=== PATIENT | female | born 1955 | race Caucasian/White ===

== ENCOUNTER 2017-07-22 20:46 | Emergency (ER) | payer OTHER, SELFPAY ==
[~2017-07-22] VITALS: Ht 167.6 cm; Wt 79.4 kg
--- NOTE | 2017-07-22 20:46 | NUR ---
ARRIVAL PATIENT ARRIVED TO ER VIA POV, PATIENT TO ROOM 3 VIA W/C BY THIS NURSE, CONNECTED TO ALL MONITORS, MD AT BEDSIDE, RT CALLED FOR EGK, RADIOLOGY CALLED FOR CT, LAB NOTIFIED OF NEED FOR CARDIAC BLOOD DRAW. PATIENT UNABLE TO RESPOND APPRORIATELY TO QUESTIONS.
--- NOTE | 2017-07-22 21:00 | NUR ---
TELESTROKE [facility] NOTIFIED, TELESTROKE IN PATIENT ROOM.
--- NOTE | 2017-07-22 21:04 | NUR ---
IV #1 AND IV #2 2055 #1 20G LEFT AC, 2100 #2 20G LEFT FOREARM
--- NOTE | 2017-07-22 21:05 | PCM.EKG ---
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
--- NOTE | 2017-07-22 21:06 | NUR ---
CT PATIENT TO CT
--- NOTE | 2017-07-22 21:07 | NUR ---
DR. GARCIA TELESTROKE NUEROLOGIST TALKING TO FAMILY ABOUT PATIENT HISTORY
--- NOTE | 2017-07-22 21:10 | NUR ---
CT PATIENT BACK FROM CT
--- NOTE | 2017-07-22 21:10 | NUR ---
DR. GARCIA ASSESSING PATIENT, DOES NOT BELIEVE PATIENT IS A CANDIDATE FOR TPA THERAPY AT THIS TIME. REQUEST A CTA OF HEAD AND NECK.
--- NOTE | 2017-07-22 21:11 | NUR ---
DR. GARCIA ON PHONE WITH DR. LEZAMA ABOUT POSSIBLE TREATMENT OPTIONS.
[2017-07-22 21:12] LABS: BASOPHIL % 0.1 % (0.0-0.2); EOSINOPHIL # 0.3 10^3/uL (0.0-0.2); HEMOGLOBIN 14.1 g/dL (12.0-15.0); LYMPHOCYTES # 3.8 10^3/uL (1.0-4.8); LYMPHOCYTES % 25.3 % (24.0-44.0); MEAN CELL HGB 27.1 pg (26-34); MEAN CORP VOLUME 84.5 fL (78-100); MEAN PLATELET VOLUME 9.2 fL (7.8-11.0); MONOCYTES # 1.2 10^3/uL (0.3-0.8); NEUTROPHIL # 9.6 10^3/uL (1.8-7.7); NEUTROPHILS % 64.3 % (41.0-85.0); WHITE BLOOD CELL 14.8 10^3/uL (4.5-11.0)
--- NOTE | 2017-07-22 21:20 | ER.PDOC ---
General Chief Complaint: Stroke Symptoms Stated Complaint: POSSIBLE STROKE Time seen by MD: 21:17 Source: family, other (62 yo female smoker presents with sudden onset at 2134 of R facial weakness, aphasia, R arm weakness. Was supposed to have R carotid endarterectomy on this next Wednesday at [facility] for a 90+ % blockage there. Had previous CVA on May 28, did not come to hospital until 2 days later. Was felt to be ischemic CVA and then bled into area of CVA. on ASA 81, atrovastatin , metformin, glimepiride, lisinopril metoprolol and cardiazem. ) Exam Limitations: clinical condition History of Present Illness Prior symptoms/Treatment: Similar symptoms previous (CT scan: appears to have old encephalomalacia in L parietal and L occipital areas, no bleed currently) Allergies: Coded Allergies: No Known Allergies (Unverified , 07/22/17) Past Medical History Medical History: CVA/TIA/stroke, cardiac problems, COPD Surgical History: stent LMP (females 10-50): postmenopause Family History Significant Family History: diabetes, hypertension, lung disease Social History Smoking: cigarettes, greater than 1 pack/day Alcohol Use: none Drug Use: none Review of Systems Constitutional: other (all obtained through niece and daughter, pt unable to give) All Other Systems: Reviewed and Negative Physical Exam General Appearance: alert, other (very elderly thin disheveled female , appears 10+ years OLDER than stated age. Is aphasic, has R facial droop and 3 /5 RUE weakness) Peripheral Exam: hemiparesis Neck: supple, non-tender Respiratory: rales CVS: reg rate & rhythm Abdomen: non-tender Skin: color nml, no rash Extremities: non-tender Results/Orders Results/Orders Laboratory Tests Test 07/22/17 21:05 White Blood Count 14.8 10^3/uL (4.5-11.0) Red Blood Count 5.21 10^6/uL (4.00-5.20) Hemoglobin 14.1 g/dL (12.0-15.0) Hematocrit 44.0 % (36.0-46.0) Mean Corpuscular Volume 84.5 fL (78-100) Mean Corpuscular Hemoglobin 27.1 pg (26-34) Mean Corpuscular Hemoglobin Concent 32.0 g/dL (33-37) Red Cell Distribution Width 14.0 % (11.5-14.5) Platelet Count 378 10^3/uL (150-400) Mean Platelet Volume 9.2 fL (7.8-11.0) Neutrophils (%) (Auto) 64.3 % (41.0-85.0) Lymphocytes (%) (Auto) 25.3 % (24.0-44.0) Monocytes (%) (Auto) 8.0 % (5.0-12.0) Neutrophils # (Auto) 9.6 10^3/uL (1.8-7.7) Lymphocytes # (Auto) 3.8 10^3/uL (1.0-4.8) Monocytes # (Auto) 1.2 10^3/uL (0.3-0.8) Absolute Immature Granulocyte (auto 0.04 10^3 u/L (0-2) Eosinophils % 2.0 % (0.0-5.0) Basophils % 0.1 % (0.0-0.2) Basophils # 0.0 10^3/uL (0.0-0.1) Eosinophil Count 0.3 10^3/uL (0.0-0.2) Prothrombin Time 11.2 SEC (9.8-11.9) Prothrombin Time INR (Non-Therap) 1.1 Activated Partial Thromboplast Time 24.6 SEC (24.67-30.72) Sodium Level 137 mmol/L (132-145) Potassium Level 4.0 mmol/L (3.6-5.2) Chloride Level 102.0 mmol/L (96-109) Carbon Dioxide Level 24.2 mmol/L (20.0-32) Anion Gap 14.8 Blood Urea Nitrogen 18 mg/dL (7-18) Creatinine 0.79 mg/dL (0.59-1.40) Estimated GFR () 89.2 (>/=60) BUN/Creatinine Ratio 22.0 Glucose Level 111 mg/dL (70-110) Calcium Level 11.6 mg/dL (8.4-10.5) Total Bilirubin 0.4 mg/dL (0.2-1.0) Aspartate Amino Transf (AST/SGOT) 14 U/L (0-35) Alanine Aminotransferase (ALT/SGPT) 27 U/L (12-78) Alkaline Phosphatase 117 U/L (50-136) Total Creatine Kinase 41 U/L (26-192) Creatine Kinase MB 0.5 ng/mL (0.5-3.6) Troponin I < 0.02 ng/mL (0.00-0.05) Total Protein 8.3 g/dL (6.4-8.2) Albumin 4.0 g/dL (3.4-5.0) Globulin 4.3 Percent Immature Gran (Cell Imm) 0.30 % (0.00-0.50) Administered Medications Medications (Trade) Dose Ordered Sig/Natty Route PRN Reason Start Time Stop Time Status Last Admin Dose Admin Sodium Chloride 500 ml @ 500 mls/hr Q1H ONCE IV 07/22/17 23:00 07/22/17 23:59 DC 07/23/17 00:01 Progress Progress spoke to dr at stroke center, since bleed into previous CVA in May 2017, NO TPA. wants CTA of head and neck, then call him back. Symptoms not worse, but no better at 2151 hours. Still smoking (EVEN after previous CVA). I mentioned this once, family vehemently denies this was a cause or risk factor, so I dropped the subject. Await CTA, creatinine normal. [facility], no neurologist. [facility], no ICU beds. [facility], on adult diversin. trying [facility]. CTA: formal report (I saw marked L carotid stenosis). Severe, almost complete narrowing of proximal L internal carotid aratery just after the bifurcation. Flow is seen distal to area of narrowing. Scattered other atherosclerotic disease noted. 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 Pt more alert, speech gradually returning. Had pulled out Yip jeannine Allan RN , no reinserted, no active bleeding. Consult/PCP: well as in inferior leads, 1-2 mm. Reason/Comments: EKG: NSR at 88, biatrial enlargement, trace ST depression on V5 and V6, as Departure Time of Disposition: 00:57 Disposition: 70 DISC/XFER TO ANOTH TYP [facility] Impression: Primary Impression: CVA (cerebrovascular accident) Condition: Stable Referrals: PCP,UNKNOWN (PCP) PRIMARY CARE PROVIDER Duration or Time Spent with Pa: 35 LLOYD LEZAMA MD Jul 22, 2017 21:20
--- NOTE | 2017-07-22 21:27 | DIREP ---
PROCEDURE:CT HEAD OR BRAIN W/O CONTRAST COMPARISON:None. INDICATIONS:POSS CVA TECHNIQUE:CT images were created without intravenous contrast. FINDINGS: VENTRICLES:The ventricles are normal in size and configuration. CEREBRUM:Remote left frontoparietal infarct. CEREBELLUM:Negative. BRAINSTEM:Negative. BASAL CISTERNS:Negative. HEMORRHAGE:No MASS LESION:No ACUTE INFARCT:No SKULL:Normal. SINUSES:Normal, except for near complete opacification of left maxillary sinus. OTHER:Vascular calcification. CONCLUSION:Chronic changes, including remote left frontoparietal infarct. Otherwise, negative head CT. Dictated by: Milad Au M.D. on 07/22/2017 at 09:25 PM
[2017-07-22 21:39] LABS: ALANINE AMINOTRANSFERASE 27 U/L (12-78); ALKALINE PHOSPHATASE 117 U/L (50-136); ASPARTATE AMINO TRANSFERASE 14 U/L (0-35); CALCIUM 11.6 mg/dL (8.4-10.5); CARBON DIOXIDE 24.2 mmol/L (20.0-32); GLUCOSE 111 mg/dL (70-110)
--- NOTE | 2017-07-22 21:46 | NUR ---
Note ashly in EDM - 07/22/17 at 2154 by [email or web address] ARRIVAL PATIENT ARRIVED AT ED VIA POV, THIS NURSE BROGHT PATIENT BACK TO ROOM 3 VIA W/C, PATIENT SHOWING SIGNS OF ACUTE STROKE, UNABLE TO EFFECTIVELY COMMUNICATE AND ANSWER QUESTIONS. PATIENT CONNECTED TO ALL MONITORS, RT CALLED FOR EKG, RADIOLOGY CALLED FOR CT, LAB NOTIFIED OF CARDIAC BLOOD DRAW.
--- NOTE | 2017-07-22 21:50 | NUR ---
Lenny limon in [facility] - 07/22/17 at 2243 by [email or web address] CT[address] PATIENT [address] FOR CTA OF HEAD AND NECK
--- NOTE | 2017-07-22 21:57 | NUR ---
NIH STROKE SCALE SCORE OF 20.
--- NOTE | 2017-07-22 22:15 | NUR ---
CTA PATIENT TO CTA FOR HEAD AND NECK PER DR. GARCIA
--- NOTE | 2017-07-22 22:37 | NUR ---
CTA PATIENT BACK
--- NOTE | 2017-07-22 22:44 | NUR ---
NIH SCALE SCORE 20
--- NOTE | 2017-07-22 22:45 | NUR ---
[facility] DR GARCIA STATES TO HAVE PATIENT TRANSFERRED TO [facility], EDP ON PHONE WITH [facility], STATES NO NEUROLOGY
--- NOTE | 2017-07-22 22:46 | NUR ---
[facility] DR. LEZAMA ON THE PHONE WITH DR. GARCIA FROM [facility].
[2017-07-22] MEDS ORDERED: NS 500ML 500 ML IV ONE ×2 (22:47→23:00)
--- NOTE | 2017-07-22 22:48 | NUR ---
[facility] STATES NO ICU BEDS AVAILABLE
--- NOTE | 2017-07-22 22:50 | DIREP ---
PROCEDURE:CTA HEAD NECK CT-CTA HEAD W/WO CONTRAST COMPARISON:None. INDICATIONS:infarct TECHNIQUE:Following the rapid infusion of intravenous contrast, 1.3 mm axial CTA images were obtained through the head and neck. Multiplanar and 3-D reconstructions were performed from source images. FINDINGS: NECK CTA: AORTIC ARCH:Out of field of view. RIGHT CAROTID:There is occasional atherosclerotic plaque and narrowing however overall patency is maintained. LEFT CAROTID:There is occasional atherosclerotic plaque and narrowing of the common carotid however overall patency is maintained., see below. VERTEBRAL ARTERIES: Regions of the left vertebral artery are diminutive when compared to the right however maintain patency is seen. NECK TISSUES:Unremarkable. LUNGS:Chronic changes are seen in the lung apices. MEDIASTINUM:Unremarkable. BONE:Unremarkable. HEAD CTA: INTERNAL CAROTIDS:There is almost near complete occlusion of the left internal carotid just after the bifurcation with the region of narrowing starting at the bifurcation and extending about 2.4 cm along the proximal internal carotid. The areas of greatest narrowing in the proximal internal carotid artery seen on image 1 0 3 series 8. ANTERIOR CEREBRALS:Unremarkable. MIDDLE CEREBRALS:Unremarkable. VERTEBRALS/BASILAR:Unremarkable. POSTERIOR CEREBRALS:Unremarkable. HEAD SOFT TISSUES: Unremarkable. SINUSES:Maxillary sinus disease is seen on the left with near complete opacification. Please note that this examination was not tailored for evaluation of the brain parenchyma. CONCLUSION: 1. Severe almost near complete narrowing of the proximal left internal carotid artery just after the bifurcation. Flow is seen distal to the area of narrowing. 2. Scattered atherosclerotic disease as above. This report was called by telephone at 10:49 pm on July 22, 2017 to Arabella Stevens . Dictated by: Wale Singh MD on 07/22/2017 at 10:37 PM
--- NOTE | 2017-07-22 22:50 | DIREP ---
PROCEDURE:CHEST 1 VIEW COMPARISON:[facility], , CHEST 1 VIEW, 05/02/2012, 04:12 PM. INDICATIONS:POSS CVA FINDINGS: LUNGS/PLEURA:No significant pulmonary parenchymal abnormalities. No effusions. VASCULATURE:Normal. Unremarkable pulmonary vasculature. CARDIAC:Normal. No cardiac silhouette abnormality or cardiomegaly. MEDIASTINUM:Normal. No visible mass or adenopathy. BONES:Mild degenerative disc disease and spondylosis without visible acute abnormalities. OTHER:Negative. CONCLUSION:No acute cardiopulmonary disease. No change. Dictated by: Milad Au M.D. on 07/22/2017 at 10:48 PM
--- NOTE | 2017-07-22 22:50 | NUR ---
[facility]
--- NOTE | 2017-07-22 23:00 | NUR ---
[facility] EDP ON PHONE WITH [facility], STATES THEY HAVE ICU BEDS, WILL CALL BACK
--- NOTE | 2017-07-22 23:35 | NUR ---
[facility]LOE NURSE AND DR. LEZAMA.
--- NOTE | 2017-07-22 23:42 | NUR ---
TRANSFER FAXED FACE SHEET.
--- NOTE | 2017-07-22 23:45 | NUR ---
NIH SCALE SCORE 18
--- NOTE | 2017-07-22 23:47 | NUR ---
[facility] ACCEPTING ER TO ER. DR. RIVERA
--- NOTE | 2017-07-23 00:07 | NUR ---
UPDATE REPORT GIVEN TO GONSALO HARO AT [facility].
--- NOTE | 2017-07-23 00:21 | NUR ---
[facility] CALLED FOR APPROX ETA,PEPPER WITH [facility] STATES APPROX 25-30 MIN ETA
--- NOTE | 2017-07-23 00:45 | NUR ---
NIH STROKE SCALE SCORE 18
[2017-07-23 01:08] VITALS: BP 127/78
--- NOTE | 2017-07-23 01:33 | CNH ---
DATE OF CONSULTATION: 07/22/2017 REFERRING SERVICE: Emergency Room. CHIEF COMPLAINT: A 62-year-old woman who presents to the ER with symptoms concerning for an acute stroke. HISTORY OF PRESENT ILLNESS: The patient was reportedly with her family earlier in the day and then was noted at 20:35 to have new-onset right-sided weakness and speech difficulty. The patient did suffer a stroke in May with somewhat similar symptoms. The family states that the patient had hemorrhage into the stroke at that time. The patient was identified to have a left internal carotid artery stenosis and had plans to have Surgery correct this not long from now. She had been taking aspirin daily, but no other blood thinners. CT scan of the head showed no evidence of a hemorrhage. A CT angiogram of the head and neck shows a near occlusion of the left internal carotid artery, but no intracranial occlusion was found. Examination showed the patient to be awake, following commands, but dense expressive aphasia, right facial droop, no gaze deviation or evidence of visual field cut, mild right arm clumsiness/drift, right leg normal strength, left side normal strength. NIH stroke scale equals 9. DIAGNOSES: 1. Acute ischemic stroke. 2. Recent stroke, within 3 months, complicated by hemorrhagic transformation of the stroke. DISCUSSION: IV TPA was considered due to the fact that this is felt to be a new stroke. However, given the fact the patient had a fairly recent stroke and especially the fact that she had a hemorrhage into that stroke, it was felt that the risk of IV TPA had the potential benefits for the patient, as best I could determine with the available data. I did recommend hydration, permissive hypertension to augment collateral flow, and continued aspirin. Júnior Wagoner MD DR: SIRISHA/danie JOB# [id number]
== END 2017-07-23 00:55 | disposition other institution (70) ==
LOC: ER 20:46
DX: I63.9 Cerebral infarction, unspecified (principal); F17.210 Nicotine dependence, cigarettes, uncomplicated; J44.9 Chronic obstructive pulmonary disease, unspecified; R29.810 Facial weakness; G81.90 Hemiplegia, unspecified affecting unspecified side; R47.01 Aphasia; Z83.3 Family history of diabetes mellitus; Z86.73 Personal history of transient ischemic attack (TIA), and cerebral infarction without residual deficits
CPT/HCPCS: 70450; 70496; 70498; 71010; 80053; 82550; 82553; 84484; 85025; 85610; 85730; 93005; 96360; 99291; J7040; Q9967; 99285; A4338

== ENCOUNTER 2018-02-22 11:57 | Inpatient (IN) | payer OTHER, SELFPAY ==
[2018-02-22] VITALS (35 sets, daily range): BP systolic 119–176; BP diastolic 61–114
[~2018-02-22] VITALS: Ht 165.1 cm; Wt 77.2 kg
[2018-02-22] MEDS ORDERED: CARDIZEM PO STA (11:59)
[2018-02-22] MEDS ORDERED: CARDIZEM IV STA ×3 (11:59→12:17)
--- NOTE | 2018-02-22 12:01 | NUR ---
ARRIVAL VIKTORIA ARRIVED TO ED3 VIA W/C WITH FAMILY, SENT FROM DOCTOR BLACKS OFFICE FOR LOW BP AND WEAKNESS, HEART RATE 165 ON INITIAL ASSESSMENT, DENIES CHEST PAIN BUT HAS HAD NAUSEA AND VOMITING.
[2018-02-22] MEDS ORDERED: CARDIZEM ONE ×4 (12:02→20:15)
[2018-02-22 12:11] LABS: BASOPHIL % 0.1 % (0.0-0.2); EOSINOPHIL % 0.1 % (0.0-5.0); HEMOGLOBIN 15.9 g/dL (12.0-15.0); LYMPHOCYTES # 2.1 10^3/uL (1.0-4.8); LYMPHOCYTES % 13.6 % (24.0-44.0); MEAN CELL HGB 27.6 pg (26-34); MEAN CELL HGB CONCENTRATION 34.2 g/dL (33-37); MEAN CORP VOLUME 80.6 fL (78-100); MEAN PLATELET VOLUME 9.8 fL (7.8-11.0); MONOCYTES # 1.2 10^3/uL (0.3-0.8); MONOCYTES % 7.4 % (5.0-12.0); NEUTROPHIL # 12.3 10^3/uL (1.8-7.7); NEUTROPHILS % 78.5 % (41.0-85.0); WHITE BLOOD CELL 15.6 10^3/uL (4.5-11.0)
--- NOTE | 2018-02-22 12:11 | ER.PDOC ---
General Chief Complaint: Palpitations Stated Complaint: RAPID HR Time seen by MD: 12:00 Source: patient Exam Limitations: no limitations History of Present Illness Timing/Duration: 24 hours Quality: fast, pounding heart beat Activities at Onset: none History of: A-FIB Modifying Factors: exercise, palpation Prior symptoms/Treatment: Similar symptoms previous Allergies: Coded Allergies: No Known Allergies (Unverified , 07/22/17) Home Meds Reported Medications Lactobacillus Combination No.4 (Probiotic) 1 Each Capsule, 1 EACH PO DAILY24, CAPSULE 02/22/18 Atorvastatin 20MG (LIPITOR 20MG) 20 Mg Tablet, 1 TAB PO DAILY, #90 TAB 3 Refills 02/22/18 Glimepiride (GLIMEPIRIDE) 4 Mg Tablet, 1 TAB PO DAILY, #30 TAB 5 Refills 02/22/18 Metoprolol Tartrate 25MG (LOPRESSER 25MG) 25 Mg Tablet, 1 TAB PO HS, #180 TAB 3 Refills 02/22/18 Metformin Hcl (METFORMIN HCL) 500 Mg Tablet, 1 TAB PO BID, #180 TAB 3 Refills 02/22/18 Apixaban (Eliquis) 5 Mg Tablet, 5 MG PO BID, TABLET 02/22/18 Diltiazem Hcl (CARDIZEM CD) 180 Mg Cap.er.24h, 1 CAP PO DAILY, #90 CAP 3 Refills 02/22/18 Past Medical History Medical History: cardiac problems Surgical History: hysterectomy, tubal, other LMP (females 10-50): postmenopause Social History Smoking: non-smoker, cigarettes Alcohol Use: none Drug Use: none Reviewed Nursing Reviewed: Vital Signs, Abn. Noted All Other Systems: Reviewed and Negative Physical Exam General Appearance: No Apparent Distress, WD/WN HEENT: PERRL/EOMI, Normal ENT Inspection, TMs Normal, Pharynx Normal Neck: Non-Tender, Full Range of Motion, Supple, Normal Inspection Respiratory: chest non-tender, lungs clear, normal breath sounds, no respiratory distress, no accessory muscle use Cardiovascular: Irregularly Irregular EKG/XRAY/CT/US EKG Comments: AFIB XRAY: chest Consult/PCP Time Consult/PCP Called: 13:00 Consult/PCP: DR BONNER Departure Time of Disposition: 13:33 Disposition: 09 ADMITTED INPATIENT Impression: Primary Impression: Atrial fibrillation Condition: Improved Referrals: SAVANA DAVID DO (PCP) PRIMARY CARE PROVIDER Duration or Time Spent with Pa: 2 HRS LEONARDO PAGAN MD Feb 22, 2018 12:11
[2018-02-22] MEDS ORDERED: NS 100ML 100 ML IV ONE ×2 (12:21→20:15)
--- NOTE | 2018-02-22 12:23 | PCM.EKG ---
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
--- NOTE | 2018-02-22 12:36 | DIREP ---
PROCEDURE:CHEST 1 VIEW COMPARISON:[facility], CR, XRAY CHEST SINGLE VW, 07/22/2017, 10:17 PM. INDICATIONS:a fib FINDINGS: LUNGS/PLEURA:No significant pulmonary parenchymal abnormalities. No effusions. VASCULATURE:Normal. Unremarkable pulmonary vasculature. CARDIAC:Normal. No cardiac silhouette abnormality or cardiomegaly. MEDIASTINUM:Normal. No visible mass or adenopathy. BONES:Spondylosis is noted throughout the mid and lower thoracic spine. Degenerative changes of the acromioclavicular joints are demonstrated. OTHER:Negative. CONCLUSION: 1. No active cardiopulmonary disease is demonstrated. Dictated by: Juan Antonio aMrrero M.D. on 02/22/2018 at 11:35 AM
[2018-02-22 12:37] LABS: ALANINE AMINOTRANSFERASE(ML) 23 U/L (12-78); ALKALINE PHOSPHATASE 147 U/L (50-136); ASPARTATE AMINO TRANSFERASE 13 U/L (0-35); CALCIUM 11.3 mg/dL (8.4-10.5); CARBON DIOXIDE 26.4 mmol/L (20.0-32)
[2018-02-22 12:39] LABS: GLUCOSE 425 mg/dL (70-110)
[2018-02-22] MEDS ORDERED: DILT180C2 PO (12:51)
[2018-02-22] MEDS ORDERED: LACT1CAP38 PO (12:51)
[2018-02-22] MEDS ORDERED: APIX5TAB PO (12:51)
[2018-02-22] MEDS ORDERED: METF500T5 PO (12:51)
[2018-02-22] MEDS ORDERED: GLIM4TAB2 PO (12:51)
[2018-02-22] MEDS ORDERED: ATOR20TA PO (12:51)
[2018-02-22] MEDS ORDERED: METO25TA4 PO (12:51)
[2018-02-22] MEDS ORDERED: HUMULIN R SQ ONE (13:00)
[2018-02-22] MEDS ORDERED: ZOFRAN IV STA (13:04)
--- NOTE | 2018-02-22 13:21 | NUR ---
CARDIZEM CARDIZEM INCREASED TO 10MG/HR.
--- NOTE | 2018-02-22 13:28 | NUR ---
Hailee Lyman on phone with Dr. Stephen
[2018-02-22] MEDS ORDERED: NS 1000ML 1,000 ML IV ONE ×2 (13:30→15:00)
--- NOTE | 2018-02-22 13:41 | NUR ---
cardizem CARDIZEM INCREAED TO 12MG/HR.
--- NOTE | 2018-02-22 14:09 | NUR ---
CARDIZEM CARDIZEM INCREAED TO 14MG/HR. PATIENT REMAINS AWAKE ALERT ORIENTED. FAMILY AT BEDSIDE
--- NOTE | 2018-02-22 14:12 | NUR ---
DR PRAVEENA PAGAN ON PHONE WITH DR GRISSOM
--- NOTE | 2018-02-22 14:21 | NUR ---
GLUCOSE BEDSIDE GLUCOSE 292, DOCTOR LATASHA NOTIFIED.
--- NOTE | 2018-02-22 14:26 | NUR ---
Glucose Patients glucose is 295 with a finger stick check
[2018-02-22] MEDS ORDERED: CARDIZEM IV SCH (14:30)
--- NOTE | 2018-02-22 14:33 | DIREP ---
PROCEDURE:US ABDOMEN LIMITED COMPARISON:None. INDICATIONS:RUQ PAIN FINDINGS: CBD:0.1 cm GALLBLADDER WALL: 0.2 cm RIGHT KIDNEY: 10.6 x 5.1 x 4.3 cm PANCREAS:The pancreas is partially obscured by bowel gas shadowing. LIVER:Normal hepatic parenchymal architecture. GALLBLADDER:There is a 1.5 cm shadowing gallstone in the gallbladder. Positive sonographic Barton's sign per technologist. BILIARY:There is no biliary ductal dilatation. RIGHT KIDNEY:Normal. No hydronephrosis. OTHER:Negative. No ascites is identified. CONCLUSION:Large gallstone. Otherwise normal examination. Dictated by: MELISSAA Physician on 02/22/2018 at 02:27 PM ac
--- NOTE | 2018-02-22 14:45 | NUR ---
Patient transported to ICU on stretcher, on RA with SPO2 at 98%, IV G 20 L AC, second liter of NS bolus and Cardizem drip at 14 mg/hr. Bedside report received from TAHIR Neal and assumed care.
--- NOTE | 2018-02-22 14:46 | NUR ---
MOBILITY Patient mobility level is B, ambulated from stretcher to bed.
--- NOTE | 2018-02-22 14:54 | NUR ---
Glucose Patients glucose is 270 with a finger stick check
[2018-02-22] MEDS ORDERED: CARDIZEM 125 MG in NS 100ML 100 ML IV ONE (16:00)
--- NOTE | 2018-02-22 16:22 | NUR ---
Notified Dr. Stephen that patient is still nauseated but no prn order for Zofran. New order received. Zofran 4 mg IV Q4HRS PRN.
[2018-02-22] MEDS ORDERED: ZOFRAN IV PRN (16:40)
--- NOTE | 2018-02-22 16:50 | NUR ---
Zofran 4 MG IV given to the patient.
[2018-02-22] MEDS: HUMALOG SQ SCH ×2 (17:23→21:07)
--- NOTE | 2018-02-22 17:30 | NUR ---
Dinner tray served, patient requested for jello and popsicle instead.
--- NOTE | 2018-02-22 18:00 | NUR ---
Dr. Stephen at bedside. Assess the patient and discuss plan of care. New orders received.
[2018-02-22] MEDS: NS 1000ML 1,000 ML IV SCH (18:43)
--- NOTE | 2018-02-22 19:10 | NUR ---
Bedside report given to incoming shift nurses and relinquished care.
--- NOTE | 2018-02-22 19:12 | NUR ---
REPORT RECEIVED FROM MREE PARHAM RN. ASSUMED PT CARE.
--- NOTE | 2018-02-22 20:00 | NUR ---
PT RESTING IN WITH FAMILY PRESENT. PT DENIES ANY PAIN/NEEDS AT THIS TIME. WITH EXCEPTION OF HEART RATE OTHER VITAL SIGNS STABLE AND WNL. HEART RATE IS AFIB WITH RVR AND FLUCTUATING BETWEEN SR AND AFIB AT THIS TIME. PT ON ROOM AIR. PT ON CARDIZEM GTT AT 15ML/HR. TO TITRATE PER PROTOCOL. NS ALSO RUNNING AT 60ML/HR. BED LOCKED AND IN LOW POSITION. SIDE RAILS UP X 2. WILL CONTINUE TO MONITOR.
--- NOTE | 2018-02-22 20:05 | NUR ---
BSC: PT UP TO USE BSC. PT HR WAS SR AND PT HEART INCREASED TO AFIB WITH RVR AT 154.
--- NOTE | 2018-02-22 20:15 | NUR ---
DR GRISSOM AT BEDSIDE ASSESSING PT. PT IS ASLEEP. ORDER TO CONTINUE WITH CARDIZEM GTT PER PROTOCOL.
[2018-02-22] MEDS ORDERED: LOPRESSER PO SCH (21:00)
[2018-02-22] MEDS: ELIQUIS PO SCH (21:05)
--- NOTE | 2018-02-22 22:33 | HPH ---
ADMIT DATE: 02/22/2018 The patient is being admitted as an inpatient to ICU. PRIMARY CARE PHYSICIAN: Dr. Hawley. ADMITTING DIAGNOSES: 1. Nausea, vomiting with dehydration, suspect food poisoning. 2. Atrial fibrillation with rapid ventricular response. 3. Peripheral arterial disease, coronary artery disease and type 2 diabetes mellitus. CHIEF COMPLAINT: "I started to throw up and not feel well with palpitations." HISTORY OF PRESENT ILLNESS: The patient is a very pleasant 62-year-old female who was at home with family. She started to have the dinner Wednesday night and within a few hours afterwards, she did not feel well. She started to have nausea and nonbilious vomiting and she did quite a lot of this throughout the night. This progressed on to Wednesday and Wednesday as well too. She did have a bout of diarrhea on Wednesday, but that was it. She felt drained and started to have palpitations and she could not keep her medications down due to her continued nausea and vomiting. No one else has been sick. She denies any fevers. She just felt bad all over and appetite has gone down. No chest pain, no fevers, no night sweats, no significant shortness of breath. She did complain of palpitations in the ER. It was noted that her heart rate was up to 140-150 and she was in rapid AFib. PAST MEDICAL HISTORY: Significant for coronary artery disease, peripheral arterial disease, type 2 diabetes mellitus diagnosed last year. She has had 2 CVAs and an NM as well. PAST SURGICAL HISTORY: Include cardiac catheterization with 2 stents. She has had a left carotid endarterectomy. She has had a total hysterectomy, bilateral tubal ligation. She has not been scoped yet. ALLERGIES: NO KNOWN DRUG ALLERGIES. SOCIAL HISTORY: She does smoke. No illicit drugs. No significant alcohol reported. FAMILY HISTORY: Noncontributory for this admission. MEDICATIONS: She is on include Eliquis, Cardizem, metoprolol, atorvastatin, metformin, lactobacillus, Amaryl. PHYSICAL EXAMINATION: VITAL SIGNS: Initially in the ER, temperature is 97.6, pulse rate was up to 165, respirations 20, blood pressure was 132/78, O2 sats of 98%. GENERAL: She is in no acute distress to me. HEENT: She appeared somewhat dry. Oropharynx was clear. NECK: Supple. HEART: She definitely had an irregular rhythm noted on heart exam. PMI was not displaced significantly. Normal S1 noted. LUNGS: Relatively clear bilaterally. She was not tachypneic. ABDOMEN: She does have good bowel sounds. Abdomen is soft. EXTREMITIES: No pitting edema. SKIN: Warm and dry. Pulses are good bilateral. LABORATORY DATA: Labs were obtained. Her white count was 15,600, hemoglobin of 15.9 and platelet count of 430. Coags were normal. D-dimer was 0.41. Chemistry panel showed sodium 127, potassium 4, bicarbonate was 26, BUN 35, creatinine 1.36, glucose was 425, proBNP was 1964. Troponin was less than 0.02. Amylase and lipase were normal. H. pylori was positive. IMAGING STUDIES: Chest x-ray did not show any acute abnormalities. She had a right upper quadrant ultrasound that did show a large gallstone, but no cholecystitis noted. ASSESSMENT: We have this female with rapid atrial fibrillation with recent what appears to be a gastroenteritis picture with underlying coronary artery disease, peripheral arterial disease, diabetes and history of cerebrovascular accident. I will continue her home medications except hold her metformin and Cardizem. She is on Cardizem drip and we will control the rate and see if she converts. I will request an echo on her in the morning to follow troponins in the hospital and put her on Humalog sliding scale for her hyperglycemia for now. Sharonda Stephen MD DR: SAW/danie JOB# [id number]
--- NOTE | 2018-02-22 22:45 | NUR ---
CARDIZEM GTT DECREASED TO 5MG/HR FROM 10MG/HR. HEART RATE IS NSR AT 61BPM. PT ALSO UP TO BSC AND HEART RATE MAINTAINED. PT REQUESTED CRACKERS AND PROVIDED PER REQUEST.
--- NOTE | 2018-02-22 23:00 | NUR ---
CARDIZEM GTT D/C. HEART RATE IS NSR AT 60BPM.
--- NOTE | 2018-02-22 23:17 | NUR ---
EKG: RT - CHALENIA AT BEDSIDE FOR EKG.
--- NOTE | 2018-02-22 23:18 | NUR ---
CARDIZEM GTT DECREASED TO 10MG/HR FROM 15MG/HR. HEART RATE IS NSR AT 60BPM. Addendum: 02/22/18 at 0476 by Clive Valdez RN RN CORRECT TIME FOR NOTE SHOULD BE 0615
--- NOTE | 2018-02-22 23:23 | NUR ---
BSC: PT UP OUT OF BED TO USE BSC. PT TOLERATING WELL. PT HEART RATE IS 68BPM.
--- NOTE | 2018-02-22 23:34 | NUR ---
MOBILITY LEVEL: PT IS MOBILITY LEVEL B ENCOURAGED PT TO: GET UP TO CHAIR X3 PER DAY USE BSC FOR ALL TOILETING NEEDS PERFORM ACTIVE ROM X3 PER DAY PARTICIPATE IN PERSONAL CARE TO GREATEST EXTENT POSSIBLE
--- NOTE | 2018-02-22 23:37 | PCM.EKG ---
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
[2018-02-23] VITALS (73 sets, daily range): BP systolic 89–172; BP diastolic 43–110
[2018-02-23] MEDS ORDERED: CARDIZEM CD ONE ×2 (00:14→15:43)
--- NOTE | 2018-02-23 00:14 | NUR ---
HEART RATE: DR GRISSOM NOTIFIED OF PT HEART RATE. AFIB RVR FROM 100S TO 130S. ORDER GIVEN TO ADMIN 180MG CARDIZEM PO STAT. ORDER RBAV.
[2018-02-23] MEDS ORDERED: CARDIZEM CD PO STA (00:16)
--- NOTE | 2018-02-23 00:56 | NUR ---
PEARL DIVER AT BEDSIDE FOR BLOOD DRAW.
--- NOTE | 2018-02-23 01:08 | NUR ---
HEART RATE - PT WITH AFIB RVR IN THE 150S. PT REFUSED MIRANDA CATHETER TO BE INSERTED.
--- NOTE | 2018-02-23 02:25 | NUR ---
HEART RATE: DR GRISSOM NOTIFIED THAT PT CONT TO EXP AFIB WITH RVR UP TO 150BPM. TELEPHONE ORDER GIVEN TO RE-START CARDIZEM GTT PER PROTOCOL. CARDIZEM GTT STARTED AT 5MG/HR FOR RATE [id number].
--- NOTE | 2018-02-23 02:45 | NUR ---
CARDIZEM GTT INCREASED TO 10MG/HR AFIB WITH RVR @ 158BPM.
--- NOTE | 2018-02-23 03:05 | NUR ---
CARDIZEM GTT INCREASED TO 15MG/HR AFIB WITH RVR @ 154BPM.
--- NOTE | 2018-02-23 04:32 | NUR ---
CARDIZEM GTT DECREASED TO 10MG/HR HEART RATE IS SR 69BPM.
--- NOTE | 2018-02-23 04:50 | NUR ---
CARDIZEM GTT DECREASED TO 5MG/HR HEART RATE IS SR 66BPM.
--- NOTE | 2018-02-23 05:17 | NUR ---
CARDIZEM GTT INCREASED TO 10MG/HR HEART RATE IS AFIB RVR 146
--- NOTE | 2018-02-23 05:33 | NUR ---
CARDIZEM GTT INCREASED TO 15MG/HR HEART RATE IS AFIB 138.
--- NOTE | 2018-02-23 05:39 | NUR ---
MOBILITY LEVEL EXCLUDED DUE TO UNSTABLE ARRHYTHMIA.
--- NOTE | 2018-02-23 06:40 | NUR ---
REPORT TO AM SHIFT. PT CARE RELINQUISHED.
--- NOTE | 2018-02-23 06:45 | NUR ---
RECEIVED REPORT FROM Lachelle COLEMAN RN. [facility].
--- NOTE | 2018-02-23 07:24 | PCM.EKG ---
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
--- NOTE | 2018-02-23 07:28 | NUR ---
ASSESSMENT COMPLETED CHARTED. VSS. PATIENT IN NORMAL SINUS RHYTHM AT THIS TIME. DENIES PAIN OR DISCOMFORT. PATIENT STATES SHE IS JUST HUNGRY. PATIENT REPOSITIONED SELF IN BED. CARDIZEM CONTINUES TO INFUSE @ 15MG/HR AND NS @ 60MLS/HR. BED IN LOW LOCKED POSITION. CALL LIGHT IN REACH.
--- NOTE | 2018-02-23 07:43 | NUR ---
PATIENT BACK IN AFIB/FLUTTER RVR 130 CARDIZEM CONTINUES TO INFUSE @ 15MG/HR PATIENT GOING IN AND OUT OF AFIB.
[2018-02-23] MEDS: HUMALOG SQ SCH ×4 (07:51→21:09)
--- NOTE | 2018-02-23 08:12 | NUR ---
DR. GRISSOM @ BEDSIDE ASSESSING PATIENT. NOTIFIED OF ARRHYTHMIA CHANGES. NO NEW ORDERS RECEIVED AT THIS TIME. WILL AWAIT FOR ECHO RESULTS.
--- NOTE | 2018-02-23 08:30 | NUR ---
RT @ BEDSIDE FOR ECHO
--- NOTE | 2018-02-23 08:30 | NUR ---
EARLY MOBILITY LEVEL C PATIENT EXCLUDED FROM PROGRAM DUE TO UNSTABLE ARRHYTHMIA. PATIENT SITTING UP IN BED 90 DEGREES. HR DID ELEVATE TO 100 BPM. NO OTHER DISTRESS NOTED. ROM EXERCISES COMPLETED. GOAL IS TO HAVE PATIENT SIT UP IN CHAIR POSITION ONE TIME A DAY AND ROM EXERCISES 3 TIMES A DAY.
[2018-02-23] MEDS: ELIQUIS PO SCH ×2 (09:19→21:01)
[2018-02-23] MEDS: BACID PO SCH (09:20)
[2018-02-23] MEDS: NS 1000ML 1,000 ML IV SCH (10:08)
[2018-02-23] MEDS ORDERED: CARDIZEM 125 MG in NS 100ML 100 ML IV ONE (10:30)
--- NOTE | 2018-02-23 13:00 | NUR ---
DISCHARGE PLAN CM VISITED WITH PATIENT REGARDING DISCHARGE PLAN AND NEEDS. PATIENT LIVES AT HOME WITH HER DAUGHTER AND GRANDCHILDREN. SHE IS ACTIVE AND INDEPENDENT. SHE DOES NOT USE ANY DME. NO HOME OXYGEN. [facility] IS WORKING WITH PATIENT DUE TO PATIENT NOT HAVING ANY INSURANCE. DISCHARGE GOAL IS TO DISCHARGE HOME WITH HER FAMILY. CM DEPT WILL CONTINUE TO MONITOR DISCHARGE NEEDS.
--- NOTE | 2018-02-23 14:03 | NUR ---
NOTIFIED DR. GRISSOM OF CARDIZEM RUNNING PAST 24 HOURS NEW ORDERS RECEIVED TO STOP CARDIZEM DRIP AND CONTINUE HOME MEDICATION CARDIZEM AND TOPROL. RBTO.
--- NOTE | 2018-02-23 14:50 | NUR ---
DECREASED CARDIZEM TO 10MG/HR HR 80
--- NOTE | 2018-02-23 15:04 | NUR ---
CARDIZEM DRIP DECREASED TO 5MG/HR HR 110
--- NOTE | 2018-02-23 15:20 | NUR ---
CARDIZEM DRIP OFF
--- NOTE | 2018-02-23 15:36 | ECHO ---
DATE OF SERVICE: 02/23/2018 FINDINGS: The left and right ventricles are of normal size and normal contractility. Left ventricular ejection fraction is 73%. The rhythm appears to be atrial fibrillation. The mitral valve is anatomically normal and there is no mitral regurgitation. The aortic valve shows sclerosis and nodular calcification of the noncoronary leaflet. There is normal aortic valve size. The tricuspid valve is normal and there is no tricuspid regurgitation. CONCLUSIONS: 1. Aortic sclerosis without stenosis. 2. Otherwise normal echocardiogram. EVANGELIST ESPINOZA MD DR: KATELYNN/danie JOB# [id number]
[2018-02-23] MEDS: CARDIZEM CD PO SCH (15:45)
--- NOTE | 2018-02-23 16:28 | NUR ---
DR. GRISSOM @ BEDSIDE. NEW ORDERS RECEIVED FOR STAT CARDIZEM 60MG PO, AND INCREASE METOPROLOL DOSE TO BID.
[2018-02-23] MEDS ORDERED: CARDIZEM PO STA (16:36)
--- NOTE | 2018-02-23 16:42 | PRM.PN ---
Subjective Subjective Date: Feb 23, 2018 Time: 16:30 Subjective Pt feeling better; no N/V, no diarrhea Patient History: Patient reports no known family medical history. VTE VTE Risk Total Score: >5 VTE Risk Score VTE Risk: Score 0-1 = Low Risk (Aggressive mobilization; early ambulation; no VTE prophylaxis required) Score 2: Moderate Risk (Intermittent/Pneumatic Compression Device OR Lovenox/Heparin/Coumadin) Score 3-4: High Risk (Intermittent/Pneumatic Compression Device AND Lovenox/Heparin/Coumadin) Score > or =5: Highest Risk (Intermittent/Pneumatic Compression Device AND Lovenox/Heparin/Coumadin) Antico:Hep/LMWH/Coum/Xarelto: Yes Mechanical device ordered: No Review of Systems Constitutional: No: Fever, Sweats, Weakness Eyes: No: Pain, Vision change, Conjunctivae inflammation ENT: No: Ear pain, Ear discharge, Nose pain Respiratory: No: Dry, Shortness of breath Cardiovascular: No: Chest Pain, Palpitations, Orthopnea Gastrointestinal: No: Nausea, Vomiting, Abdominal Pain Genitourinary: No Dysuria, No Frequency, No Incontinence, No Hematuria Musculoskeletal: No: neck pain, shoulder pain, arm pain Skin: No: Lesions, Jaundice, Bruising Neurological: No: Confusion, Seizures Allergies: Coded Allergies: No Known Allergies (Unverified , 07/22/17) Scheduled Apixaban (Eliquis), 5 MG PO BID, (Reported) Atorvastatin 20MG (Lipitor 20MG), 1 TAB PO DAILY, (Reported) Diltiazem Hcl (Cardizem Cd), 1 CAP PO DAILY, (Reported) Glimepiride (Glimepiride), 1 TAB PO DAILY, (Reported) Lactobacillus Combination No.4 (Probiotic), 1 EACH PO DAILY24, (Reported) Metformin Hcl (Metformin Hcl), 1 TAB PO BID, (Reported) Metoprolol Tartrate 25MG (Lopresser 25MG), 1 TAB PO HS, (Reported) Objective Vitals and I/O Vital Sign - Last 24 Hours 02/22/18 02/22/18 02/22/18 02/22/18 16:45 16:54 17:00 17:15 Pulse 91 121 88 104 Resp 19 17 19 20 B/P (MAP) 165/89 (114) Pulse Ox 96 98 97 98 02/22/18 02/22/18 02/22/18 02/22/18 17:30 17:45 17:58 18:00 Pulse 113 149 108 107 Resp 16 14 10 19 B/P (MAP) 154/81 (105) Pulse Ox 97 98 98 98 02/22/18 02/22/18 02/22/18 02/22/18 18:15 18:21 18:29 18:30 Pulse 116 116 129 145 Resp 18 18 14 B/P (MAP) 151/114 (126) 168/72 (104) Pulse Ox 98 86 97 98 02/22/18 02/22/18 02/22/18 02/22/18 18:45 19:01 19:15 19:30 Temp 98.9 Pulse 121 119 106 110 Resp 11 14 19 13 B/P (MAP) 167/76 (106) 153/103 (120) 168/77 (107) Pulse Ox 100 99 98 99 02/22/18 02/22/18 02/22/18 02/22/18 19:46 20:00 20:00 20:15 Pulse 112 77 157 Resp 16 13 10 B/P (MAP) 160/77 (104) 149/91 (110) 145/95 (112) Pulse Ox 97 97 98 O2 Delivery Room Air 02/22/18 02/22/18 02/22/18 02/22/18 20:26 20:30 20:46 21:00 Pulse 131 73 126 107 Resp 20 6 18 B/P (MAP) 169/96 (120) 166/96 (119) 155/81 (105) Pulse Ox 96 98 99 02/22/18 02/22/18 02/22/18 02/22/18 21:06 21:16 21:31 21:45 Pulse 84 141 122 105 B/P (MAP) 155/81 138/66 (90) 148/61 (90) 145/80 (101) Pulse Ox 98 98 98 02/22/18 02/22/18 02/22/18 02/22/18 22:00 22:15 22:30 22:45 Pulse 108 83 67 60 Resp 19 19 14 B/P (MAP) 147/76 (99) 130/80 (97) 145/82 (103) 137/88 (104) Pulse Ox 95 97 96 97 02/22/18 02/22/18 02/22/1802/22/18 23:00 23:15 23:30 23:45 Pulse 64 57 65 58 Resp 17 16 15 B/P (MAP) 149/86 (107) 138/86 (103) 134/64 (87) 151/92 (111) Pulse Ox 96 97 97 97 02/23/18 02/23/18 02/23/18 02/23/18 00:00 00:00 00:16 00:21 Temp 98.1 Pulse 57 86 130 Resp 17 19 B/P (MAP) 161/95 (117) 131/84 (100) 131/84 Pulse Ox 98 98 O2 Delivery Room Air 02/23/18 02/23/18 02/23/18 02/23/18 00:30 00:45 01:00 01:15 Pulse 120 141 108 158 Resp 14 14 19 28 B/P (MAP) 143/110 (121) 145/99 (114) 172/96 (121) 172/98 (122) Pulse Ox 96 99 96 95 02/23/18 02/23/18 02/23/18 02/23/18 01:30 01:45 02:00 02:15 Pulse 152 155 118 133 Resp 10 18 19 B/P (MAP) 129/99 (109) 129/95 (106) 150/101 (117) 138/80 (99) Pulse Ox 97 99 98 98 02/23/18 02/23/18 02/23/18 02/23/18 02:30 02:45 03:03 03:15 Pulse 143 140 139 116 Resp 10 22 29 10 B/P (MAP) 140/95 (110) 143/92 (109) 160/85 (110) 142/72 (95) Pulse Ox 95 98 90 95 02/23/18 02/23/18 02/23/18 02/23/18 03:30 03:45 04:00 04:01 Pulse 128 92 136 Resp 21 B/P (MAP) 126/94 (105) 139/93 (108) 132/90 (104) Pulse Ox 97 96 96 O2 Delivery Room Air 02/23/18 02/23/18 02/23/18 02/23/18 04:15 04:30 04:45 05:00 Pulse 154 125 72 67 Resp 18 8 21 18 B/P (MAP) 139/59 (85) 136/65 (88) 148/86 (106) 142/76 (98) Pulse Ox 96 95 95 96 02/23/18 02/23/18 02/23/18 02/23/18 05:15 05:30 05:45 06:00 Temp 99.2 Pulse 74 123 128 69 Resp 21 20 13 B/P (MAP) 139/85 (103) 142/76 (98) 130/75 (93) 149/86 (107) Pulse Ox 96 96 97 96 02/23/18 02/23/18 02/23/18 02/23/18 06:15 06:30 06:45 07:00 Pulse 119 112 123 152 Resp 10 13 B/P (MAP) 150/87 (108) 152/71 (98) 161/76 (104) 142/92 (109) Pulse Ox 96 98 98 96 02/23/18 02/23/18 02/23/18 02/23/18 07:15 07:28 07:30 07:45 Temp 98.1 Pulse 109 75 80 Resp 17 19 15 B/P (MAP) 127/95 (106) 144/84 (104) 115/61 (79) Pulse Ox 97 98 98 O2 Delivery Room Air Room Air 02/23/18 02/23/18 02/23/18 02/23/18 08:00 08:15 08:30 08:45 Pulse 123 73 72 155 Resp 11 14 20 15 Pulse Ox 98 97 99 97 02/23/18 02/23/18 02/23/18 02/23/18 08:50 09:04 09:19 09:33 Pulse 134 105 153 124 Resp 18 12 15 19 B/P (MAP) 127/73 (91) 110/68 (82) 89/43 (58) 98/57 (71) Pulse Ox 98 96 85 98 02/23/18 02/23/18 02/23/18 02/23/18 09:50 10:04 10:16 10:18 Pulse 122 105 64 69 Resp 17 18 14 B/P (MAP) 125/94 (104) 118/46 (70) 128/78 (95) Pulse Ox 97 97 98 02/23/18 02/23/18 02/23/18 02/23/18 10:34 10:48 11:04 11:19 Pulse 69 66 59 127 Resp 21 19 16 15 B/P (MAP) 113/65 (81) 119/55 (76) 117/58 (77) 124/50 (74) Pulse Ox 97 98 97 96 02/23/18 02/23/18 02/23/18 02/23/18 11:34 11:49 12:04 12:19 Temp 98.1 Pulse 70 70 139 148 Resp 14 14 19 20 B/P (MAP) 161/76 (104) 156/83 (107) 142/86 (104) 142/91 (108) Pulse Ox 97 97 98 97 02/23/18 02/23/18 02/23/18 12:34 12:36 15:45 Pulse 138 154 Resp 24 B/P (MAP) 141/99 (113) 131/70 Pulse Ox 97 O2 Delivery Room Air Intake and Output 02/22/18 02/22/18 02/23/18 15:00 23:00 07:00 Intake Total 1000 ml 590 ml 1069 ml Output Total 800 ml 1550 ml Balance 1000 ml -210 ml -481 ml General: Alert, Oriented X3, Cooperative, No acute distress HEENT: Atraumatic, PERRLA, EOMI Neck: Supple, No JVD, No thyromegaly Lungs: Clear to auscultation, Normal air movement Heart: Normal S1, Normal S2 Abdomen: Normal bowel sounds, Soft Extremities: No clubbing, No cyanosis Skin: No rashes, No breakdown Neuro: Normal speech Psych/Mental Status: Mental status NL, Mood NL Course Sepsis Screening Results: Posi: NEGATIVE Sepsis Qualifier/Stage: NO DEFINITE RISK Vitals & review Data Vital Sign - Last 24 Hours 02/22/18 02/22/18 02/22/18 02/22/18 16:45 16:54 17:00 17:15 Pulse 91 121 88 104 Resp 19 17 19 20 B/P (MAP) 165/89 (114) Pulse Ox 96 98 97 98 02/22/18 02/22/18 02/22/18 02/22/18 17:30 17:45 17:58 18:00 Pulse 113 149 108 107 Resp 16 14 10 19 B/P (MAP) 154/81 (105) Pulse Ox 97 98 98 98 02/22/18 02/22/18 02/22/18 02/22/18 18:15 18:21 18:29 18:30 Pulse 116 116 129 145 Resp 18 18 14 B/P (MAP) 151/114 (126) 168/72 (104) Pulse Ox 98 86 97 98 02/22/18 02/22/18 02/22/18 02/22/18 18:45 19:01 19:15 19:30 Temp 98.9 Pulse 121 119 106 110 Resp 11 14 19 13 B/P (MAP) 167/76 (106) 153/103 (120) 168/77 (107) Pulse Ox 100 99 98 99 02/22/18 02/22/18 02/22/18 02/22/18 19:46 20:00 20:00 20:15 Pulse 112 77 157 Resp 16 13 10 B/P (MAP) 160/77 (104) 149/91 (110) 145/95 (112) Pulse Ox 97 97 98 O2 Delivery Room Air 02/22/18 02/22/18 02/22/18 02/22/18 20:26 20:30 20:46 21:00 Pulse 131 73 126 107 Resp 20 6 18 B/P (MAP) 169/96 (120) 166/96 (119) 155/81 (105) Pulse Ox 96 98 99 02/22/18 02/22/18 02/22/18 02/22/18 21:06 21:16 21:31 21:45 Pulse 84 141 122 105 B/P (MAP) 155/81 138/66 (90) 148/61 (90) 145/80 (101) Pulse Ox 98 98 98 02/22/18 02/22/18 02/22/18 02/22/18 22:00 22:15 22:30 22:45 Pulse 108 83 67 60 Resp 19 19 14 B/P (MAP) 147/76 (99) 130/80 (97) 145/82 (103) 137/88 (104) Pulse Ox 95 97 96 97 02/22/18 02/22/18 02/22/18 02/22/18 23:00 23:15 23:30 23:45 Pulse 64 57 65 58 Resp 17 16 15 B/P (MAP) 149/86 (107) 138/86 (103) 134/64 (87) 151/92 (111) Pulse Ox 96 97 97 97 02/23/18 02/23/18 02/23/18 02/23/18 00:00 00:00 00:16 00:21 Temp 98.1 Pulse 57 86 130 Resp 17 19 B/P (MAP) 161/95 (117) 131/84 (100) 131/84 Pulse Ox 98 98 O2 Delivery Room Air 02/23/18 02/23/18 02/23/18 02/23/18 00:30 00:45 01:00 01:15 Pulse 120 141 108 158 Resp 14 14 19 28 B/P (MAP) 143/110 (121) 145/99 (114) 172/96 (121) 172/98 (122) Pulse Ox 96 99 96 95 02/23/18 02/23/18 02/23/18 02/23/18 01:30 01:45 02:00 02:15 Pulse 152 155 118 133 Resp 10 18 19 B/P (MAP) 129/99 (109) 129/95 (106) 150/101 (117) 138/80 (99) Pulse Ox 97 99 98 98 02/23/18 02/23/18 02/23/18 02/23/18 02:30 02:45 03:03 03:15 Pulse 143 140 139 116 Resp 10 22 29 10 B/P (MAP) 140/95 (110) 143/92 (109) 160/85 (110) 142/72 (95) Pulse Ox 95 98 90 95 02/23/18 02/23/18 02/23/18 02/23/18 03:30 03:45 04:00 04:01 Pulse 128 92 136 Resp 21 B/P (MAP) 126/94 (105) 139/93 (108) 132/90 (104) Pulse Ox 97 96 96 O2 Delivery Room Air 02/23/18 02/23/18 02/23/18 02/23/18 04:15 04:30 04:45 05:00 Pulse 154 125 72 67 Resp 18 8 21 18 B/P (MAP) 139/59 (85) 136/65 (88) 148/86 (106) 142/76 (98) Pulse Ox 96 95 95 96 02/23/18 02/23/18 02/23/18 02/23/18 05:15 05:30 05:45 06:00 Temp 99.2 Pulse 74 123 128 69 Resp 21 20 13 B/P (MAP) 139/85 (103) 142/76 (98) 130/75 (93) 149/86 (107) Pulse Ox 96 96 97 96 02/23/18 02/23/18 02/23/18 02/23/18 06:15 06:30 06:45 07:00 Pulse 119 112 123 152 Resp 10 13 B/P (MAP) 150/87 (108) 152/71 (98) 161/76 (104) 142/92 (109) Pulse Ox 96 98 98 96 02/23/18 02/23/18 02/23/18 02/23/18 07:15 07:28 07:30 07:45 Temp 98.1 Pulse 109 75 80 Resp 17 19 15 B/P (MAP) 127/95 (106) 144/84 (104) 115/61 (79) Pulse Ox 97 98 98 O2 Delivery Room Air Room Air 02/23/18 02/23/18 02/23/18 02/23/18 08:00 08:15 08:30 08:45 Pulse 123 73 72 155 Resp 11 14 20 15 Pulse Ox 98 97 99 97 02/23/18 02/23/18 02/23/18 02/23/18 08:50 09:04 09:19 09:33 Pulse 134 105 153 124 Resp 18 12 15 19 B/P (MAP) 127/73 (91) 110/68 (82) 89/43 (58) 98/57 (71) Pulse Ox 98 96 85 98 02/23/18 02/23/18 02/23/18 02/23/18 09:50 10:04 10:16 10:18 Pulse 122 105 64 69 Resp 17 18 14 B/P (MAP) 125/94 (104) 118/46 (70) 128/78 (95) Pulse Ox 97 97 98 02/23/18 02/23/18 02/23/18 02/23/18 10:34 10:48 11:04 11:19 Pulse 69 66 59 127 Resp 21 19 16 15 B/P (MAP) 113/65 (81) 119/55 (76) 117/58 (77) 124/50 (74) Pulse Ox 97 98 97 96 02/23/18 02/23/18 02/23/18 02/23/18 11:34 11:49 12:04 12:19 Temp 98.1 Pulse 70 70 139 148 Resp 14 14 19 20 B/P (MAP) 161/76 (104) 156/83 (107) 142/86 (104) 142/91 (108) Pulse Ox 97 97 98 97 02/23/18 02/23/18 02/23/18 12:34 12:36 15:45 Pulse 138 154 Resp 24 B/P (MAP) 141/99 (113) 131/70 Pulse Ox 97 O2 Delivery Room Air Intake and Output 02/22/18 02/22/18 02/23/18 15:00 23:00 07:00 Intake Total 1000 ml 590 ml 1069 ml Output Total 800 ml 1550 ml Balance 1000 ml -210 ml -481 ml Laboratory Tests Test 02/22/18 12:07 02/22/18 18:30 02/23/18 00:57 White Blood Count 15.6 10^3/uL Red Blood Count 5.77 10^6/uL Hemoglobin 15.9 g/dL Hematocrit 46.5 % Mean Corpuscular Volume 80.6 fL Mean Corpuscular Hemoglobin 27.6 pg Mean Corpuscular Hemoglobin Concent 34.2 g/dL Red Cell Distribution Width 14.0 % Platelet Count 430 10^3/uL Mean Platelet Volume 9.8 fL Neutrophils (%) (Auto) 78.5 % Lymphocytes (%) (Auto) 13.6 % Monocytes (%) (Auto) 7.4 % Neutrophils # (Auto) 12.3 10^3/uL Lymphocytes # (Auto) 2.1 10^3/uL Monocytes # (Auto) 1.2 10^3/uL Absolute Immature Granulocyte (auto 0.04 10^3 u/L Eosinophils % 0.1 % Basophils % 0.1 % Basophils # 0.0 10^3/uL Eosinophil Count 0.0 10^3/uL Prothrombin Time 10.7 SEC Prothrombin Time INR (Non-Therap) 1.1 Activated Partial Thromboplast Time 26.1 SEC D-Dimer 0.41 mg/L Sodium Level 127 mmol/L Potassium Level 4.0 mmol/L Chloride Level 90.0 mmol/L Carbon Dioxide Level 26.4 mmol/L Anion Gap 14.6 Blood Urea Nitrogen 35 mg/dL Creatinine 1.36 mg/dL Estimated GFR () 47.7 BUN/Creatinine Ratio 25.0 Glucose Level 425 mg/dL Calcium Level 11.3 mg/dL Total Bilirubin 0.6 mg/dL Aspartate Amino Transf (AST/SGOT) 13 U/L Alanine Aminotransferase (ALT/SGPT) 23 U/L Alkaline Phosphatase 147 U/L Total Creatine Kinase 42 U/L Creatine Kinase MB 1.1 ng/mL Troponin I < 0.02 ng/mL < 0.02 ng/mL < 0.02 ng/mL Pro-B-Type Natriuretic Peptide 1964 pg/mL Total Protein 7.9 g/dL Albumin 3.5 g/dL Globulin 4.4 Amylase Level 36 U/L Lipase 166 U/L Percent Immature Gran (Cell Imm) 0.30 % Helicobacter pylori Screen POSITIVE Current Medications Medications (Trade) Dose Ordered Sig/Natty PRN Reason Start Time Stop Time Status Last Admin Atorvastatin Calcium (Lipitor) 20 mg HS 02/23/18 21:00 03/25/18 20:59 Diltiazem HCl (Cardizem Cd) 180 mg DAILY 02/24/18 09:00 03/26/18 08:59 02/23/18 15:45 Diltiazem HCl (Cardizem) 60 mg STAT STAT 02/23/18 16:36 02/23/18 16:37 UNV Glimepiride (Amaryl) 4 mg DAILY 02/24/18 09:00 03/26/18 08:59 Insulin Human Lispro (Humalog) 0-140 0 Units 141-200... 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
--- NOTE | 2018-02-23 18:30 | NUR ---
DR. GRISSOM ON TELEPHONE. NEW ORDERS RECEIVED TO TRANSFER TO [facility]LOOR.
--- NOTE | 2018-02-23 19:18 | NUR ---
TRANSFERRED TO [facility] VIA WHEELCHAIR. REPORTED OFF TO LILLIAN AGUILAR. RELINQUISHED CARE.
--- NOTE | 2018-02-23 19:33 | NUR ---
Report Received report [facility] Antonette Michael RN
[2018-02-23] MEDS: LIPITOR PO SCH (21:01)
[2018-02-23] MEDS: LOPRESSER PO SCH (21:01)
[2018-02-24] VITALS (40 sets, daily range): BP systolic 81–167; BP diastolic 35–104
[2018-02-24] MEDS: NS 1000ML 1,000 ML IV SCH ×2 (02:06→19:51)
--- NOTE | 2018-02-24 06:45 | NUR ---
REPORT RECEIVED REPORT, ASSUMED CARE FOR PATIENT AT THIS TIME.
[2018-02-24] MEDS: HUMALOG SQ SCH ×4 (07:30→21:00)
[2018-02-24] MEDS: CARDIZEM CD PO SCH (08:21)
[2018-02-24] MEDS: AMARYL PO SCH (08:22)
[2018-02-24] MEDS: BACID PO SCH (08:23)
[2018-02-24] MEDS: ELIQUIS PO SCH ×2 (08:23→21:12)
[2018-02-24] MEDS: LOPRESSER PO SCH ×2 (08:23→21:13)
[2018-02-24] MEDS ORDERED: LOPRESSER ONE (09:00)
[2018-02-24] MEDS ORDERED: LOPRESSER IVP STA ×2 (09:03→09:32)
--- NOTE | 2018-02-24 09:10 | NUR ---
VERBAL ORDERS RECEIVED FOR LOPRESSOR 5MG ONE TIME BY . WILL GIVE AND REASSESS HEART RATE. HEART RATE CURRENTLY IS 136.
--- NOTE | 2018-02-24 09:20 | NUR ---
HEART RATE DOWN TO 77 AT THIS TIME. NO S/S OF DISTRESS. NOTIFIED. CALL LIGHT IN REACH, BED IS LOW AND LOCKED. WILL CONTINUE TO MONITOR PATIENT.
--- NOTE | 2018-02-24 09:29 | NUR ---
PATIENTS HEART RATE INCREASED CURRENTLY TO 132. NOTIFIED. ORDERS RECEIVED FOR ANOTHER DOSE OF LOPRESSOR 5MG IV. CALL LIGHT IN REACH, BED IS LOW AND LOCKED. WILL CONTINUE TO MONITOR PATIENT.
--- NOTE | 2018-02-24 09:39 | NUR ---
NOTIFIED OF BP OF 90/75. MAP 82. P.133 PREVIOUS TO LOPRESSOR ADMINISTRATION. OKAY PER DOCTOR TO GIVE AT THIS TIME. NO S/S OF DISTRESS. WILL CONTINUE TO MONITOR.
--- NOTE | 2018-02-24 10:59 | NUR ---
TRANSFER TO ICU REPORT GIVEN TO TAHIR WHARTON. RELINQUISHED CARE FOR PATIENT AT THIS TIME.
[2018-02-24 11:06] LABS: BASOPHIL % 0.1 % (0.0-0.2); EOSINOPHIL # 0.1 10^3/uL (0.0-0.2); HEMOGLOBIN 13.5 g/dL (12.0-15.0); LYMPHOCYTES # 2.5 10^3/uL (1.0-4.8); LYMPHOCYTES % 21.8 % (24.0-44.0); MEAN CELL HGB 27.6 pg (26-34); MEAN CELL HGB CONCENTRATION 33.3 g/dL (33-37); MEAN CORP VOLUME 82.8 fL (78-100); MEAN PLATELET VOLUME 9.6 fL (7.8-11.0); MONOCYTES % 8.3 % (5.0-12.0); NEUTROPHIL # 7.9 10^3/uL (1.8-7.7); NEUTROPHILS % 68.6 % (41.0-85.0); RED CELL DISTRIBUTION WIDTH 13.7 % (11.5-14.5); WHITE BLOOD CELL 11.6 10^3/uL (4.5-11.0)
--- NOTE | 2018-02-24 11:15 | NUR ---
ARRIVED TO ICU PATIENT ORIENTED TO ROOM, BED, AND CALL LIGHT. PATIENT DENIES AY CP OR PALPITATIONS. SPEECH CLEAR AND COHERENT. PATIENT CONNECTED TO MINDRAY TELEMONITOR. PATIENT IN A FIB RATE OF 120- 130. PATIENT HAD MOMENTS IN SR THEN GOES BACK IN TO A FIB. ACCU CHECK DONE 286MG/DL. SEE EMAR.
[2018-02-24] MEDS ORDERED: CORDARONE IV STA (11:33)
[2018-02-24] MEDS ORDERED: NEXTERONE IV ONE (11:36)
[2018-02-24] MEDS ORDERED: NEXTERONE 360 MG/200 ML BAG 200 ML IV ONE (11:36)
[2018-02-24 11:39] LABS: CARBON DIOXIDE 27.3 mmol/L (20.0-32)
--- NOTE | 2018-02-24 11:45 | NUR ---
AMIODARONE TELEPHONE ORDER RECEIVED FROM DR. GRISSOM TO START ON AMIODARONE DRIP PROTOCOL. AMIODARONE 150MG IV BOLUS IN 10- MINUTES STARTED ORDERED.
--- NOTE | 2018-02-24 11:50 | NUR ---
AMIODARONE STOPPED DR. GRISSOM CALLED AND ORDERED TO STOP AMIODARONE DRIP. ORDERED BETAPACE 80 MG PO TWICE A DAY. METOPROLOL 25MG PO TWICE A DAY. SEE EMAR. AMIODARONE STOPPED AT THIS TIME.
[2018-02-24] MEDS: BETAPACE PO SCH ×3 (12:00→21:12)
[2018-02-24] MEDS: GLUCOPHAGE PO SCH ×2 (12:00→21:13)
[2018-02-24] MEDS ORDERED: BETAPACE PO SCH ×2 (12:00→12:30)
[2018-02-24] MEDS ORDERED: CORDARONE IV ONE ×2 (12:00)
--- NOTE | 2018-02-24 12:17 | NUR ---
MEDICATIONS BETAPACE GIVEN ORDERED AND HUMALOG 6UNITS PER SLIDING SCALE GIVEN. LUNCH TRAY SET UP FOR PATIENT. PATIENT LEFT SITTING UP IN BED EATING LUNCH WATCHING TV. CALL LIGHT WITHIN EASY REACH.
--- NOTE | 2018-02-24 14:13 | NUR ---
CONVERTED TO SINUS DR. GRISSOM NOTIFIED THAT PATIENT HAS BEEN IN SINUS RHYTHM FOR 10 MINUTES. BP 85/41, MAP OF 61, AND HR 58. NO DISTRESS NOTED. NO NEW ORDER AT THIS TIME
--- NOTE | 2018-02-24 16:52 | NUR ---
ROSANA GIBBS BACK IN AFIB. DR. GRISSOM NOTIFED, NO NEW ORDER AT THIS TIME.
--- NOTE | 2018-02-24 17:34 | NUR ---
SINUS RHYTHM PAITNET BACK IN SINUS RHYTHM. WILL CONTINUE TO MONITOR.
--- NOTE | 2018-02-24 18:30 | NUR ---
RECEIVED REPORT ASSUMED CARE OF PATIENT.
--- NOTE | 2018-02-24 18:50 | NUR ---
UA OBTAINED TAKEN TO LAB
[2018-02-24 18:59] LABS: BILIRUBIN,URINE NEGATIVE (NEGATIVE); UROBILINOGEN,URINE NORMAL (NEGATIVE)
[2018-02-24 19:03] LABS: APPEARANCE,URINE CLOUDY (CLEAR); UA COLOR YELLOW (YELLOW)
--- NOTE | 2018-02-24 19:55 | NUR ---
DR. GRISSOM AT BEDSIDE UPDATED ON PATIENT AND GAVE UA RESULTS FOR HIM TO REVIEW. HE WILL ORDER ABX FOR UTI.
--- NOTE | 2018-02-24 20:06 | PRM.PN ---
Subjective Subjective Date: Feb 24, 2018 Time: 19:50 Subjective Pt feeling ok; has some dysuria Patient History: Patient reports no known family medical history. VTE VTE Risk Total Score: >5 VTE Risk Score VTE Risk: Score 0-1 = Low Risk (Aggressive mobilization; early ambulation; no VTE prophylaxis required) Score 2: Moderate Risk (Intermittent/Pneumatic Compression Device OR Lovenox/Heparin/Coumadin) Score 3-4: High Risk (Intermittent/Pneumatic Compression Device AND Lovenox/Heparin/Coumadin) Score > or =5: Highest Risk (Intermittent/Pneumatic Compression Device AND Lovenox/Heparin/Coumadin) Antico:Hep/LMWH/Coum/Xarelto: Yes Mechanical device ordered: No Review of Systems Constitutional: No: Fever, Sweats, Weakness Eyes: No: Pain, Vision change, Conjunctivae inflammation ENT: No: Ear pain, Ear discharge, Nose pain Respiratory: No: Cough, Dry, Shortness of breath Cardiovascular: No: Chest Pain, Palpitations, Orthopnea Gastrointestinal: No: Nausea, Vomiting, Abdominal Pain Genitourinary: Dysuria, Frequency; No Incontinence, No Hematuria Musculoskeletal: No: neck pain, shoulder pain, arm pain Skin: No: Lesions, Jaundice, Bruising Neurological: No: Confusion, Seizures Allergies: Coded Allergies: No Known Allergies (Unverified , 07/22/17) Scheduled Apixaban (Eliquis), 5 MG PO BID, (Reported) Atorvastatin 20MG (Lipitor 20MG), 1 TAB PO DAILY, (Reported) Diltiazem Hcl (Cardizem Cd), 1 CAP PO DAILY, (Reported) Glimepiride (Glimepiride), 1 TAB PO DAILY, (Reported) Lactobacillus Combination No.4 (Probiotic), 1 EACH PO DAILY24, (Reported) Metformin Hcl (Metformin Hcl), 1 TAB PO BID, (Reported) Metoprolol Tartrate 25MG (Lopresser 25MG), 1 TAB PO HS, (Reported) Objective Vitals and I/O Vital Sign - Last 24 Hours 02/23/18 02/24/18 02/24/18 02/24/18 21:01 00:05 00:45 05:33 Temp 98.2 98.3 Pulse 67 60 136 Resp 16 17 B/P (MAP) 141/86 118/46 (70) 124/73 (90) Pulse Ox 98 97 O2 Delivery Room Air Room Air 02/24/18 02/24/18 02/24/18 02/24/18 08:21 08:23 08:25 09:06 Pulse 136 136 136 B/P (MAP) 124/73 124/73 124/73 O2 Delivery Room Air 02/24/18 02/24/18 02/24/18 02/24/18 09:34 09:45 11:00 11:15 Temp 98.0 97.6 Pulse 136 136 130 110 Resp 18 19 18 B/P (MAP) 124/73 90/75 (80) Pulse Ox 97 96 97 O2 Delivery Room Air 02/24/18 02/24/18 02/24/18 02/24/18 11:20 11:45 12:15 12:22 Pulse 114 84 58 Resp 18 19 18 B/P (MAP) 126/72 (90) Pulse Ox 98 100 100 O2 Delivery Room Air 02/24/18 02/24/18 02/24/18 02/24/18 12:37 12:52 13:08 13:22 Pulse 100 99 86 60 Resp 14 20 19 16 B/P (MAP) 144/74 (97) 147/98 (114) 117/72 (87) 102/59 (73) Pulse Ox 100 98 100 97 02/24/18 02/24/18 02/24/18 02/24/18 13:38 13:52 14:07 14:22 Pulse 72 59 58 59 Resp 14 15 16 21 B/P (MAP) 81/35 (50) 91/42 (58) 85/41 (56) 98/44 (62) Pulse Ox 98 98 97 98 02/24/18 02/24/18 02/24/18 02/24/18 14:37 14:52 15:07 15:22 Pulse 58 69 59 71 Resp 18 22 19 24 B/P (MAP) 128/57 (80) 102/54 (70) 100/53 (69) 124/89 (101) Pulse Ox 99 97 97 100 02/24/18 02/24/18 02/24/18 02/24/18 15:37 15:53 16:07 16:45 Pulse 60 61 64 Resp 16 16 12 B/P (MAP) 136/78 (97) 142/90 (107) 143/76 (98) Pulse Ox 99 100 97 O2 Delivery Room Air Intake and Output 02/23/18 02/23/18 02/24/18 15:00 23:00 07:00 Intake Total 480 ml 1508 ml 1068 ml Output Total 2050 ml Balance 480 ml -542 ml 1068 ml General: Alert, Oriented X3, Cooperative, No acute distress HEENT: Atraumatic, PERRLA, EOMI, Mucous membr. moist/pink Neck: Supple, No JVD, No thyromegaly Lungs: Clear to auscultation, Normal air movement Heart: Normal S1, Normal S2 Abdomen: Normal bowel sounds, Soft Extremities: No clubbing, No cyanosis Skin: No breakdown Neuro: Normal speech Psych/Mental Status: Mental status NL, Mood NL Course Sepsis Screening Results: Posi: NEGATIVE Sepsis Qualifier/Stage: NO DEFINITE RISK Vitals & review Data Vital Sign - Last 24 Hours 02/22/18 02/22/18 02/22/18 02/22/18 16:45 16:54 17:00 17:15 Pulse 91 121 88 104 Resp 19 17 19 20 B/P (MAP) 165/89 (114) Pulse Ox 96 98 97 98 02/22/18 02/22/18 02/22/18 02/22/18 17:30 17:45 17:58 18:00 Pulse 113 149 108 107 Resp 16 14 10 19 B/P (MAP) 154/81 (105) Pulse Ox 97 98 98 98 02/22/18 02/22/18 02/22/18 02/22/18 18:15 18:21 18:29 18:30 Pulse 116 116 129 145 Resp 18 18 14 B/P (MAP) 151/114 (126) 168/72 (104) Pulse Ox 98 86 97 98 02/22/18 02/22/18 02/22/18 02/22/18 18:45 19:01 19:15 19:30 Temp 98.9 Pulse 121 119 106 110 Resp 11 14 19 13 B/P (MAP) 167/76 (106) 153/103 (120) 168/77 (107) Pulse Ox 100 99 98 99 02/22/18 02/22/18 02/22/18 02/22/18 19:46 20:00 20:00 20:15 Pulse 112 77 157 Resp 16 13 10 B/P (MAP) 160/77 (104) 149/91 (110) 145/95 (112) Pulse Ox 97 97 98 O2 Delivery Room Air 02/22/18 02/22/18 02/22/18 02/22/18 20:26 20:30 20:46 21:00 Pulse 131 73 126 107 Resp 20 6 18 B/P (MAP) 169/96 (120) 166/96 (119) 155/81 (105) Pulse Ox 96 98 99 02/22/18 02/22/18 02/22/18 02/22/18 21:06 21:16 21:31 21:45 Pulse 84 141 122 105 B/P (MAP) 155/81 138/66 (90) 148/61 (90) 145/80 (101) Pulse Ox 98 98 98 02/22/18 02/22/18 02/22/18 02/22/18 22:00 22:15 22:30 22:45 Pulse 108 83 67 60 Resp 19 19 14 B/P (MAP) 147/76 (99) 130/80 (97) 145/82 (103) 137/88 (104) Pulse Ox 95 97 96 97 02/22/18 02/22/18 02/22/18 02/22/18 23:00 23:15 23:30 23:45 Pulse 64 57 65 58 Resp 17 16 15 B/P (MAP) 149/86 (107) 138/86 (103) 134/64 (87) 151/92 (111) Pulse Ox 96 97 97 97 02/23/18 02/23/18 02/23/18 02/23/18 00:00 00:00 00:16 00:21 Temp 98.1 Pulse 57 86 130 Resp 17 19 B/P (MAP) 161/95 (117) 131/84 (100) 131/84 Pulse Ox 98 98 O2 Delivery Room Air 02/23/18 02/23/18 02/23/18 02/23/18 00:30 00:45 01:00 01:15 Pulse 120 141 108 158 Resp 14 14 19 28 B/P (MAP) 143/110 (121) 145/99 (114) 172/96 (121) 172/98 (122) Pulse Ox 96 99 96 95 02/23/18 02/23/18 02/23/18 02/23/18 01:30 01:45 02:00 02:15 Pulse 152 155 118 133 Resp 10 18 19 B/P (MAP) 129/99 (109) 129/95 (106) 150/101 (117) 138/80 (99) Pulse Ox 97 99 98 98 02/23/18 02/23/18 02/23/18 02/23/18 02:30 02:45 03:03 03:15 Pulse 143 140 139 116 Resp 10 22 29 10 B/P (MAP) 140/95 (110) 143/92 (109) 160/85 (110) 142/72 (95) Pulse Ox 95 98 90 95 02/23/18 02/23/18 02/23/18 02/23/18 03:30 03:45 04:00 04:01 Pulse 128 92 136 Resp 21 B/P (MAP) 126/94 (105) 139/93 (108) 132/90 (104) Pulse Ox 97 96 96 O2 Delivery Room Air 02/23/18 02/23/18 02/23/18 02/23/18 04:15 04:30 04:45 05:00 Pulse 154 125 72 67 Resp 18 8 21 18 B/P (MAP) 139/59 (85) 136/65 (88) 148/86 (106) 142/76 (98) Pulse Ox 96 95 95 96 02/23/18 02/23/18 02/23/18 02/23/18 05:15 05:30 05:45 06:00 Temp 99.2 Pulse 74 123 128 69 Resp 21 20 13 B/P (MAP) 139/85 (103) 142/76 (98) 130/75 (93) 149/86 (107) Pulse Ox 96 96 97 96 02/23/18 02/23/18 02/23/18 02/23/18 06:15 06:30 06:45 07:00 Pulse 119 112 123 152 Resp 10 13 B/P (MAP) 150/87 (108) 152/71 (98) 161/76 (104) 142/92 (109) Pulse Ox 96 98 98 96 02/23/18 02/23/18 02/23/18 02/23/18 07:15 07:28 07:30 07:45 Temp 98.1 Pulse 109 75 80 Resp 17 19 15 B/P (MAP) 127/95 (106) 144/84 (104) 115/61 (79) Pulse Ox 97 98 98 O2 Delivery Room Air Room Air 02/23/18 02/23/18 02/23/18 02/23/18 08:00 08:15 08:30 08:45 Pulse 123 73 72 155 Resp 11 14 20 15 Pulse Ox 98 97 99 97 02/23/18 02/23/18 02/23/18 02/23/18 08:50 09:04 09:19 09:33 Pulse 134 105 153 124 Resp 18 12 15 19 B/P (MAP) 127/73 (91) 110/68 (82) 89/43 (58) 98/57 (71) Pulse Ox 98 96 85 98 02/23/18 02/23/18 02/23/18 02/23/18 09:50 10:04 10:16 10:18 Pulse 122 105 64 69 Resp 17 18 14 B/P (MAP) 125/94 (104) 118/46 (70) 128/78 (95) Pulse Ox 97 97 98 02/23/18 02/23/18 02/23/18 02/23/18 10:34 10:48 11:04 11:19 Pulse 69 66 59 127 Resp 21 19 16 15 B/P (MAP) 113/65 (81) 119/55 (76) 117/58 (77) 124/50 (74) Pulse Ox 97 98 97 96 02/23/18 02/23/18 02/23/18 02/23/18 11:34 11:49 12:04 12:19 Temp 98.1 Pulse 70 70 139 148 Resp 14 14 19 20 B/P (MAP) 161/76 (104) 156/83 (107) 142/86 (104) 142/91 (108) Pulse Ox 97 97 98 97 02/23/18 02/23/18 02/23/18 12:34 12:36 15:45 Pulse 138 154 Resp 24 B/P (MAP) 141/99 (113) 131/70 Pulse Ox 97 O2 Delivery Room Air Intake and Output 02/22/18 02/22/18 02/23/18 15:00 23:00 07:00 Intake Total 1000 ml 590 ml 1069 ml Output Total 800 ml 1550 ml Balance 1000 ml -210 ml -481 ml Laboratory Tests Test 02/22/18 12:07 02/22/18 18:30 02/23/18 00:57 White Blood Count 15.6 10^3/uL Red Blood Count 5.77 10^6/uL Hemoglobin 15.9 g/dL Hematocrit 46.5 % Mean Corpuscular Volume 80.6 fL Mean Corpuscular Hemoglobin 27.6 pg Mean Corpuscular Hemoglobin Concent 34.2 g/dL Red Cell Distribution Width 14.0 % Platelet Count 430 10^3/uL Mean Platelet Volume 9.8 fL Neutrophils (%) (Auto) 78.5 % Lymphocytes (%) (Auto) 13.6 % Monocytes (%) (Auto) 7.4 % Neutrophils # (Auto) 12.3 10^3/uL Lymphocytes # (Auto) 2.1 10^3/uL Monocytes # (Auto) 1.2 10^3/uL Absolute Immature Granulocyte (auto 0.04 10^3 u/L Eosinophils % 0.1 % Basophils % 0.1 % Basophils # 0.0 10^3/uL Eosinophil Count 0.0 10^3/uL Prothrombin Time 10.7 SEC Prothrombin Time INR (Non-Therap) 1.1 Activated Partial Thromboplast Time 26.1 SEC D-Dimer 0.41 mg/L Sodium Level 127 mmol/L Potassium Level 4.0 mmol/L Chloride Level 90.0 mmol/L Carbon Dioxide Level 26.4 mmol/L Anion Gap 14.6 Blood Urea Nitrogen 35 mg/dL Creatinine 1.36 mg/dL Estimated GFR () 47.7 BUN/Creatinine Ratio 25.0 Glucose Level 425 mg/dL Calcium Level 11.3 mg/dL Total Bilirubin 0.6 mg/dL Aspartate Amino Transf (AST/SGOT) 13 U/L Alanine Aminotransferase (ALT/SGPT) 23 U/L Alkaline Phosphatase 147 U/L Total Creatine Kinase 42 U/L Creatine Kinase MB 1.1 ng/mL Troponin I < 0.02 ng/mL < 0.02 ng/mL < 0.02 ng/mL Pro-B-Type Natriuretic Peptide 1964 pg/mL Total Protein 7.9 g/dL Albumin 3.5 g/dL Globulin 4.4 Amylase Level 36 U/L Lipase 166 U/L Percent Immature Gran (Cell Imm) 0.30 % Helicobacter pylori Screen POSITIVE Current Medications Medications (Trade) Dose Ordered Sig/Natty PRN Reason Start Time Stop Time Status Last Admin Atorvastatin Calcium (Lipitor) 20 mg HS 02/23/18 21:00 03/25/18 20:59 Diltiazem HCl (Cardizem Cd) 180 mg DAILY 02/24/18 09:00 03/26/18 08:59 02/23/18 15:45 Diltiazem HCl (Cardizem) 60 mg STAT STAT 02/23/18 16:36 02/23/18 16:37 UNV Glimepiride (Amaryl) 4 mg DAILY 02/24/18 09:00 03/26/18 08:59 Insulin Human Lispro (Humalog) 0-140 0 Units 141-200... ACHS 02/22/18 17:30 03/24/18 17:29 02/23/18 12:20 Lactobacillus Acidophilus (Bacid) 1 each DAILY 02/23/18 09:00 03/25/18 08:59 02/23/18 09:20 Metoprolol Tartrate (Lopresser) 25 mg BID 02/23/18 21:00 03/24/18 20:59 UNV Ondansetron HCl (Zofran) 4 mg Q4H PRN NAUSEA / VOMITING 02/22/18 16:40 03/24/18 16:39 02/22/18 16:50 Sodium Chloride 1,000 ml @ 60 mls/hr [id number] 02/22/18 18:30 03/24/18 18:29 02/23/18 10:08 Assessment/Plan Assessment/Plan Assessment/Plan 62 yo female with rapid afib, dysuria, Type 2 DM, COPD - talked with Dr. House and will start betapace and wean her toprol - home metformin restarted and following sugars - Rocephin for her UTI - follow clinically PEDRO PABLO GRISSOM MD Feb 24, 2018 20:06
[2018-02-24] MEDS ORDERED: ROCEPHIN 1,000 MG in NS 100ML 100 ML IV SCH (20:30)
[2018-02-24] MEDS ORDERED: LOPRESSOR PO SCH (21:00)
[2018-02-24] MEDS ORDERED: NS 100ML 100 ML IV ONE (21:09)
[2018-02-24] MEDS ORDERED: ROCEPHIN ONE (21:09)
[2018-02-24] MEDS: LIPITOR PO SCH (21:13)
[2018-02-25] VITALS (53 sets, daily range): BP systolic 108–183; BP diastolic 50–120
--- NOTE | 2018-02-25 07:03 | NUR ---
REPORT GIVEN RELINQUISHED CARE
--- NOTE | 2018-02-25 07:03 | NUR ---
Bedside report received from TAHIR Buchanan and assumed care.
--- NOTE | 2018-02-25 07:30 | NUR ---
MOBILITY Patient's mobility level is B. Patient will get up to a chair 3x per day, preferably at meal times, use the bedsdie toilet for all toileting needs, perform active range of motion exercises 3x per day, participate in personal care to the greatest extent possible.
--- NOTE | 2018-02-25 07:35 | NUR ---
MOBILITY Patient ambulated from bed to bedside commode, patient had 750 ml of urine out.
--- NOTE | 2018-02-25 07:54 | NUR ---
Blood glucoses resulted to 174, 2 units Humalog given on patient's L abdomen.
--- NOTE | 2018-02-25 08:00 | NUR ---
Breakfast tray served, patient consumed 100% of her breakfast plate.
[2018-02-25] MEDS: HUMALOG SQ SCH ×2 (08:03→12:16)
[2018-02-25] MEDS ORDERED: CORDARONE PO SCH (09:00)
--- NOTE | 2018-02-25 09:00 | NUR ---
MOBILITY Patient ambulated from bed to the sink in her room to wash her face and brush her teeth.
--- NOTE | 2018-02-25 09:30 | NUR ---
Bed bath offered and patient refused and stated that she will get a bath when she gets home if [facility] is [facility]
[2018-02-25] MEDS: GLUCOPHAGE PO SCH (09:34)
[2018-02-25] MEDS: CARDIZEM CD PO SCH (09:34)
[2018-02-25] MEDS: BACID PO SCH (09:34)
[2018-02-25] MEDS: ELIQUIS PO SCH (09:35)
[2018-02-25] MEDS: AMARYL PO SCH (09:35)
[2018-02-25] MEDS: BETAPACE PO SCH (09:35)
[2018-02-25] MEDS: LOPRESSER PO SCH (09:36)
--- NOTE | 2018-02-25 10:04 | NUR ---
Dr. Stephen called the unit, patient for transfer to [facility] on tele monitoring.
--- NOTE | 2018-02-25 10:10 | NUR ---
Called [facility] for room availability, patient is going to room 304 after lunch. Notified patient and patient stated that she will be the one to inform her sister about the transfer.
--- NOTE | 2018-02-25 11:59 | NUR ---
Blood glucoses resulted to 161, 2 units Humalog given on patient's R abdomen.
--- NOTE | 2018-02-25 12:00 | NUR ---
Lunch tray served, patient consumed 100% of her lunch plate.
--- NOTE | 2018-02-25 12:15 | NUR ---
MOBILITY Patient ambulated from bed to bedside commode, 400 ml of urine out.
--- NOTE | 2018-02-25 12:20 | NUR ---
Dr. Stephen at bedside. Transfer order to [facility] cancelled by Dr. Stephen. Patient for discharge home per Dr. Stephen's order. Patient stated that she will notify her sister.
[2018-02-25] MEDS ORDERED: SOTA80TA18 PO (12:35)
[2018-02-25] MEDS ORDERED: CEPH-350 PO (12:35)
--- NOTE | 2018-02-25 13:12 | NUR ---
Called in patient's new prescription at [facility].
--- NOTE | 2018-02-25 13:30 | NUR ---
Exit care instruction given, patient verbalized understanding and no questions at this time,
--- NOTE | 2018-02-25 13:35 | NUR ---
IV DC'D with catheter tip intact.
--- NOTE | 2018-02-25 13:45 | NUR ---
Patient transported out of the unit by wheelchair on RA, accompanied by her sister with all of her personal belongings. Patient assisted to her sister's private vehicle and discharge home.
--- NOTE | 2018-02-26 00:18 | DSH ---
DATE OF DISCHARGE: 02/25/2018 ADMITTING DIAGNOSES: Rapid atrial fibrillation with acute gastroenteritis and dehydration with diabetes. DISCHARGE DIAGNOSES: Chronic atrial fibrillation with dehydration, resolved and urinary tract infection with diabetes. HOSPITAL COURSE: The patient is a 62-year-old female who came in with extreme nausea and vomiting. She had eaten something and started to throw up within hours. We believe she had some food poisoning and some gastroenteritis picture with some diarrhea. She was clinically dehydrated when she came in and she was in rapid AFib. I went ahead and started her Cardizem drip and she actually converted back to sinus rhythm overnight, but she goes in and out of rapid AFib throughout the next day. Urine was abnormal and I went ahead and started her on IV Rocephin with fluids, her dehydration is much improved. I spoke with her machine tender, ____ who recommended to start her on Betapace and weaned her off Toprol which I did. She has remained in a sinus rhythm for the past 24 hours. She feels great. Currently, her labs actually looked a lot better. White count is normalized. Her electrolytes looked okay. Her kidney function is improved, so she feels she wants to go home at this point. I am going to send her home on Betapace 80 mg twice a day, stop her Toprol, continue her Cardizem, continue all her other medications, advance diet as tolerated at home. I am going to put her on Keflex twice a day for 5 more days to treat her UTI and she is to follow up with ____, her machine tender. Sharonda Stephen MD DR: SAW/danie JOB# [id number]
== END 2018-02-25 13:45 | disposition home or self-care (01) | DRG 309 ==
LOC: ER 11:57 → UNDOADMIN 13:10 → ICU 13:10 → MS 02-23 19:19 → ICU 02-24 11:31
PROVIDERS: ADMIT Pediatrics; ATTEND Pediatrics
DX: I48.2 Chronic atrial fibrillation (principal); N39.0 Urinary tract infection, site not specified; K52.9 Noninfective gastroenteritis and colitis, unspecified; I25.10 Atherosclerotic heart disease of native coronary artery without angina pectoris; E11.65 Type 2 diabetes mellitus with hyperglycemia; E11.51 Type 2 diabetes mellitus with diabetic peripheral angiopathy without gangrene; T62.8X1A Toxic effect of other specified noxious substances eaten as food, accidental (unintentional), initial encounter; J44.9 Chronic obstructive pulmonary disease, unspecified; E86.0 Dehydration; F17.200 Nicotine dependence, unspecified, uncomplicated; Z86.73 Personal history of transient ischemic attack (TIA), and cerebral infarction without residual deficits; Z90.710 Acquired absence of both cervix and uterus; Z79.84 Long term (current) use of oral hypoglycemic drugs; Z79.899 Other long term (current) drug therapy; Z95.5 Presence of coronary angioplasty implant and graft; Z98.51 Tubal ligation status; Y92.89 Other specified places as the place of occurrence of the external cause
CPT/HCPCS: 36415; 71045; 76705; 80053; 81000; 82150; 82550; 82553; 82948; 83690; 83880; 84484; 85025; 85379; 85610; 85730; 86677; 87086; 93005; 93307; 96361; 96372; 96374; 96375; 96376; 99285; J0282; J0696; J1815; J2405; J3490; J7030; J7050

== ENCOUNTER 2019-04-23 05:11 | Emergency (ER) | payer OTHER ==
[2019-04-23 05:11] VITALS: BP 129/91
[~2019-04-23 05:11] MED LIST: APIX5TAB PO; ATOR20TA PO; CEPH-350 PO; DILT180C2 PO; GLIM4TAB2 PO; LACT1CAP38 PO; METF500T17 PO; METO25TA4 PO; SOTA80TA18 PO
[2019-04-23 05:25] LABS: BASOPHIL % 0.2 % (0.0-0.2); EOSINOPHIL # 0.4 10^3/uL (0.0-0.2); EOSINOPHIL % 3.6 % (0.0-5.0); HEMOGLOBIN 14.7 g/dL (12.0-15.0); LYMPHOCYTES # 2.8 10^3/uL (1.0-4.8); LYMPHOCYTES % 28.5 % (24.0-44.0); MEAN CELL HGB 29.4 pg (26-34); MEAN CELL HGB CONCENTRATION 32.5 g/dL (33-37); MEAN CORP VOLUME 90.6 fL (78-100); MEAN PLATELET VOLUME 10.3 fL (7.8-11.0); MONOCYTES # 0.6 10^3/uL (0.3-0.8); MONOCYTES % 5.7 % (5.0-12.0); NEUTROPHIL # 6.2 10^3/uL (1.8-7.7); NEUTROPHILS % 61.6 % (41.0-85.0); RED CELL DISTRIBUTION WIDTH 13.4 % (11.5-14.5)
--- NOTE | 2019-04-23 05:30 | ER.PDOC ---
General Chief Complaint: Requesting Medical Care Stated Complaint: RESP. 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 EMS called and patient intubated prior to bringing her to the ED. Character of AMS: decreased responsiveness Usually: orientedx3 Associated Symptoms: trouble breathing Allergies: Coded Allergies: No Known Allergies (Unverified , 07/22/17) Home Meds Active Scripts Sotalol Hcl (BETAPACE) 80 Mg Tablet, 80 MG PO BID, #60 TABLET 1 Refill Prov:PEDRO PABLO GRISSOM MD 02/25/18 Reported Medications Glimepiride (GLIMEPIRIDE) 4 Mg Tablet, 1 TAB PO BID, #180 TAB 3 Refills 04/23/19 Lactobacillus Combination No.4 (Probiotic) 1 Each Capsule, 1 EACH PO DAILY24, CAPSULE 02/22/18 Atorvastatin 20MG (LIPITOR 20MG) 20 Mg Tablet, 1 TAB PO DAILY, #90 TAB 3 Refills 02/22/18 Metformin Hcl (METFORMIN HCL) 500 Mg Tablet, 1 TAB PO BID, #180 TAB 3 Refills 02/22/18 Apixaban (Eliquis) 5 Mg Tablet, 5 MG PO BID, TABLET 02/22/18 Diltiazem Hcl (CARDIZEM CD) 180 Mg Cap.er.24h, 1 CAP PO DAILY, #90 CAP 3 Refills 02/22/18 Discontinued Reported Medications Glimepiride (GLIMEPIRIDE) 4 Mg Tablet, 1 TAB PO DAILY, #30 TAB 5 Refills 02/22/18 Discontinued Scripts Cephalexin (KEFLEX) 500 Mg Capsule, 500 MG PO BID, #10 CAP 0 Refills Prov:PEDRO PABLO GRISSOM MD 02/25/18 Past Medical History Medical History: cardiac problems, diabetes Surgical History: hysterectomy, tubal, other Social History Drug Use: none Review of Systems Constitutional: no symptoms reported Respiratory: see HPI Cardiovascular: no symptoms reported Gastrointestinal: see HPI Musculoskeletal: no symptoms reported Psychiatric/Neurological: see HPI All Other Systems: Reviewed and Negative Physical Exam General Appearance: other (Intubated) HEENT: no apparent trauma Neuro/Psych: other (Intubated) Cranial Nerves: other (intubated) Peripheral Exam: other (intubated) Respiratory: rhonchi, other (diminished breath sounds) CVS: reg rate & rhythm, heart sounds nml Abdomen: non-tender, no organomegaly, no distention Skin: color nml, no rash, warm/dry Extremities: non-tender, nml ROM, no pedal edema Results/Orders Results/Orders Orders - EMILY BECK MD Cbc With Auto Diff (04/23/19 05:17) Comprehensive Metabolic Panel (04/23/19 05:17) Creatine Kinase (04/23/19 05:17) Probnp B-Type Nitrate Operator (04/23/19 05:17) Troponin I (04/23/19 05:17) D-Dimer (04/23/19 05:17) Blood Culture (04/23/19 05:17) Ekg-Routine (04/23/19 05:17) Xr Chest 1v (04/23/19 05:17) Urinalysis (04/23/19 05:17) Ct Head Wo Contrast (04/23/19 05:20) Ipratropium/Albuterol Sulfate (Duoneb 0. (04/23/19 05:41) Dexamethasone Sod Phosphate (Decadron) (04/23/19 05:41) Ipratropium/Albuterol Sulfate (Duoneb 0. (04/23/19 05:42) Dexamethasone Sod Phosphate (Decadron) (04/23/19 05:42) Propofol/Pf (Diprivan) (04/23/19 05:48) Fentanyl Citrate/Pf (Sublimaze) (04/23/19 05:50) Lorazepam (Ativan) (04/23/19 05:50) Furosemide (Lasix) (04/23/19 06:03) Propofol (Diprivan) (04/23/19 05:53) Lorazepam (Ativan) (04/23/19 05:53) Fentanyl Citrate/Pf (Sublimaze) (04/23/19 05:53) Furosemide (Lasix) (04/23/19 05:53) Levofloxacin 750mg/D5w 100ml (Levaquin) (04/23/19 05:53) Urine Culture (04/23/19 05:50) Arterial Blood Gas (04/23/19 06:05) Levofloxacin 750mg/D5w 100ml (Levaquin) (04/23/19 06:10) +Ref Lac Acid Yn (Sepsis Prot) (04/23/19 06:14) 0.9 % Sodium Chloride (Ns 1000ml) (04/23/19 06:15) Insulin Regular, Human (Humulin R) (04/23/19 06:15) Insulin Regular, Human (Humulin R) (04/23/19 06:15) Vital Signs Date Time Temp Pulse Resp B/P (MAP) Pulse Ox O2 Delivery O2 Flow Rate FiO2 04/23/19 06:24 74 22 112/82 (92) 100 Mechanical Ventilator 04/23/19 06:06 125/88 04/23/19 06:00 85 22 125/88 (100) 100 Mechanical Ventilator 04/23/19 05:45 92 22 194/124 (147) 100 Mechanical Ventilator 04/23/19 05:11 96.6 79 22 100 Mechanical Ventilator 04/23/19 05:11 96.6 79 22 04/23/19 05:11 96.6 79 22 129/91 (104) 100 Mechanical Ventilator Administered Medications Medications (Trade) Dose Ordered Sig/Natty Route PRN Reason Start Time Stop Time Status Last Admin Dose Admin Albuterol/ Ipratropium (Duoneb 0.5 Mg-3 Mg/3 ml Soln) 3 ml STAT STAT IH 04/23/19 05:41 04/23/19 05:42 DC 04/23/19 06:31 3 ML Dexamethasone Sodium Phosphate (Decadron) 4 mg STAT STAT IH 04/23/19 05:41 04/23/19 05:42 DC 04/23/19 06:31 4 MG Fentanyl Citrate (Sublimaze) 100 mcg STAT STAT IV 04/23/19 05:53 04/23/19 06:05 DC 04/23/19 06:06 100 MCG Furosemide (Lasix) 40 mg STAT STAT IV 04/23/19 05:53 04/23/19 06:05 DC 04/23/19 06:06 40 MG Levofloxacin/ Dextrose 150 ml @ 100 mls/hr STAT STAT IV 04/23/19 05:53 04/23/19 07:22 04/23/19 06:10 100 MLS/HR Lorazepam (Ativan) 2 mg STAT STAT IV 04/23/19 05:53 04/23/19 06:05 DC 04/23/19 06:06 2 MG Propofol (Diprivan) 200 mg STAT STAT IV 04/23/19 05:53 04/23/19 06:05 DC 04/23/19 06:06 200 MG Laboratory Tests Test 04/23/19 05:20 04/23/19 05:50 04/23/19 06:05 White Blood Count 10.0 10^3/uL (4.5-11.0) Red Blood Count 5.00 10^6/uL (4.00-5.20) Hemoglobin 14.7 g/dL (12.0-15.0) Hematocrit 45.3 % (36.0-46.0) Mean Corpuscular Volume 90.6 fL (78-100) Mean Corpuscular Hemoglobin 29.4 pg (26-34) Mean Corpuscular Hemoglobin Concent 32.5 g/dL (33-37) L Red Cell Distribution Width 13.4 % (11.5-14.5) Platelet Count 274 10^3/uL (150-400) Mean Platelet Volume 10.3 fL (7.8-11.0) Neutrophils (%) (Auto) 61.6 % (41.0-85.0) Lymphocytes (%) (Auto) 28.5 % (24.0-44.0) Monocytes (%) (Auto) 5.7 % (5.0-12.0) Neutrophils # (Auto) 6.2 10^3/uL (1.8-7.7) Lymphocytes # (Auto) 2.8 10^3/uL (1.0-4.8) Monocytes # (Auto) 0.6 10^3/uL (0.3-0.8) Absolute Immature Granulocyte (auto 0.04 10^3 u/L (0-2) Immature Granulocytes % 0.40 % (0.00-0.50) Eosinophils % 3.6 % (0.0-5.0) Basophils % 0.2 % (0.0-0.2) Basophils # 0.0 10^3/uL (0.0-0.1) Eosinophil Count 0.4 10^3/uL (0.0-0.2) H D-Dimer 0.97 mg/L (0.19-0.49) *H Sodium Level 137 mmol/L (132-145) Potassium Level 4.5 mmol/L (3.6-5.2) Chloride Level 105.0 mmol/L (96-109) Carbon Dioxide Level 15.3 mmol/L (20.0-32) L Anion Gap 21.2 Blood Urea Nitrogen 19 mg/dL (7-18) H Creatinine 1.21 mg/dL (0.59-1.40) Estimated GFR () 54.2 (>/=60) BUN/Creatinine Ratio 15.0 Glucose Level 540 mg/dL (70-110) *H Calcium Level 9.7 mg/dL (8.4-10.5) Total Bilirubin 0.4 mg/dL (0.2-1.0) Aspartate Amino Transferase (AST) 158 U/L (0-35) H Alanine Aminotransferase (ALT) 148 U/L (12-78) H Alkaline Phosphatase 136 U/L (50-136) Total Creatine Kinase 46 U/L (26-192) Troponin I 0.10 ng/mL (0.00-0.05) H Pro-B-Type Natriuretic Peptide 6510 pg/mL (0-125) H Total Protein 6.1 g/dL (6.4-8.2) L Albumin 2.8 g/dL (3.4-5.0) L Globulin 3.3 Urine Collection Type UNKNOWN Urine Color YELLOW (YELLOW) Urine Appearance CLOUDY (CLEAR) H Urine Bilirubin NEGATIVE MG/DL (NEGATIVE) Urine Ketones NEGATIVE (NEGATIVE) Urine Specific [employer] 1.020 (1.005-1.035) Urine pH 5 (5.0-6.0) Urine Protein 500 mg/dL (NEGATIVE) H Urine Urobilinogen NORMAL (NEGATIVE) Urine Nitrate NEGATIVE (NEGATIVE) Urine Leukocyte Esterase 25 /uL TRACE (NEGATIVE) Urine Blood 25 1+ (NEGATIVE) H Urine RBC 2-5 RBC/HPF (NONE SEEN) Urine WBC TNTC WBC/HPF (0-2) H Urine Squamous Epithelial Cells FEW #/HPF (FEW) Urine Bacteria MANY (NONE SEEN) H Urine Glucose 1000 (NEGATIVE) H Blood Gas Sample Site RT BRACIAL ARTERY Blood pH 7.070 (7.350-7.450) Blood Gas PCO2 55.4 mmHg (35.0-45.0) H Blood Gas PO2 95.6 mmHg (80.0-100.0) Blood Gas HCO3 15.7 mmol/L (22.0-26.0) L Blood Gas Base Excess -15.0 mmol/L (-2.0-2.0) L Jacob Test N/A Arterial Blood Oxygen Saturation 93.8 % (94.0-97.00) L Deoxyhemoglobin 6.0 % (0.0-5.0) H Carboxyhemoglobin 2.4 % (0.0-3.9) Methemoglobin 0.4 % (0.00-5.0) Total Hemoglobin 16.8 % (12.0-17.8) Total Oxygen Concentration 21.6 % (13.5-17.5) H Lactic Acid (Blood Gas) 7.1 mmol/1 (0.50-2.0) *H Blood Gas Temperature 37 FiO2 100 % (20-101) Blood Gas PEEP 5.0 CMH2O Bicarbonate 17.4 mmol/L (23-27) L EKG/XRAY/CT/US EKG Comments: Sinus tachycardia XRAY: chest (Pulmonary edema versus Pneumonia) Course Sepsis Screening Results: Posi: NEGATIVE Sepsis Qualifier/Stage: NO DEFINITE RISK Duration or Total Time Spent w: 2 HRS Vitals & review Data Vital Sign - Last 24 Hours 04/23/19 04/23/19 04/23/19 04/23/19 05:11 05:11 05:11 05:45 Temp 96.6 96.6 96.6 Pulse 79 79 79 92 Resp 22 22 22 22 B/P (MAP) 129/91 (104) 194/124 (147) Pulse Ox 100 100 100 O2 Delivery Mechanical Ventilator Mechanical Ventilator Mechanical Ventilator 04/23/19 04/23/19 04/23/19 06:00 06:06 06:24 Pulse 85 74 Resp 22 22 B/P (MAP) 125/88 (100) 125/88 112/82 (92) Pulse Ox 100 100 O2 Delivery Mechanical Ventilator Mechanical Ventilator Laboratory Tests Test 04/23/19 05:20 04/23/19 05:50 04/23/19 06:05 White Blood Count 10.0 10^3/uL Red Blood Count 5.00 10^6/uL Hemoglobin 14.7 g/dL Hematocrit 45.3 % Mean Corpuscular Volume 90.6 fL Mean Corpuscular Hemoglobin 29.4 pg Mean Corpuscular Hemoglobin Concent 32.5 g/dL Red Cell Distribution Width 13.4 % Platelet Count 274 10^3/uL Mean Platelet Volume 10.3 fL Neutrophils (%) (Auto) 61.6 % Lymphocytes (%) (Auto) 28.5 % Monocytes (%) (Auto) 5.7 % Neutrophils # (Auto) 6.2 10^3/uL Lymphocytes # (Auto) 2.8 10^3/uL Monocytes # (Auto) 0.6 10^3/uL Absolute Immature Granulocyte (auto 0.04 10^3 u/L Immature Granulocytes % 0.40 % Eosinophils % 3.6 % Basophils % 0.2 % Basophils # 0.0 10^3/uL Eosinophil Count 0.4 10^3/uL D-Dimer 0.97 mg/L Sodium Level 137 mmol/L Potassium Level 4.5 mmol/L Chloride Level 105.0 mmol/L Carbon Dioxide Level 15.3 mmol/L Anion Gap 21.2 Blood Urea Nitrogen 19 mg/dL Creatinine 1.21 mg/dL Estimated GFR () 54.2 BUN/Creatinine Ratio 15.0 Glucose Level 540 mg/dL Calcium Level 9.7 mg/dL Total Bilirubin 0.4 mg/dL Aspartate Amino Transf (AST/SGOT) 158 U/L Alanine Aminotransferase (ALT/SGPT) 148 U/L Alkaline Phosphatase 136 U/L Total Creatine Kinase 46 U/L Troponin I 0.10 ng/mL Pro-B-Type Natriuretic Peptide 6510 pg/mL Total Protein 6.1 g/dL Albumin 2.8 g/dL Globulin 3.3 Urine Collection Type UNKNOWN Urine Color YELLOW Urine Appearance CLOUDY Urine Bilirubin NEGATIVE MG/DL Urine Ketones NEGATIVE Urine Specific [employer] 1.020 Urine pH 5 Urine Protein 500 mg/dL Urine Urobilinogen NORMAL Urine Nitrate NEGATIVE Urine Leukocyte Esterase 25 /uL TRACE Urine Blood 25 1+ Urine RBC 2-5 RBC/HPF Urine WBC TNTC WBC/HPF Urine Squamous Epithelial Cells FEW #/HPF Urine Bacteria MANY Urine Glucose 1000 Blood Gas Sample Site RT BRACIAL ARTERY Blood Gas pH 7.070 Blood Gas PCO2 55.4 mmHg Blood Gas PO2 95.6 mmHg Blood Gas HCO3 15.7 mmol/L Blood Gas Base Excess -15.0 mmol/L Jacob Test N/A Arterial Blood Oxygen Saturation 93.8 % Deoxyhemoglobin 6.0 % Carboxyhemoglobin 2.4 % Methemoglobin 0.4 % Total Hemoglobin 16.8 % Total Oxygen Concentration 21.6 % Lactic Acid (Blood Gas) 7.1 mmol/1 Blood Gas Temperature 37 FiO2 100 % Blood Gas PEEP 5.0 CMH2O Bicarbonate 17.4 mmol/L Current Medications Medications (Trade) Dose Ordered Sig/Natty PRN Reason Start Time Stop Time Status Last Admin Insulin Human Regular 100 unit/ Sodium Chloride 100 ml @ 5 mls/hr STAT 04/23/19 06:15 04/24/19 02:14 Levofloxacin/ Dextrose 150 ml @ 100 mls/hr STAT STAT 04/23/19 05:53 04/23/19 07:22 04/23/19 06:10 Sodium Chloride 1,000 ml @ 1,200 mls/hr Q50M STAT 04/23/19 06:15 04/23/19 07:04 LEVEL 1 SEPSIS INFECTION CRITE: ABX Therapy, Urinary Tract Infection LEVEL 2-SIRS (LIST ALL THAT AP: RR>20/min Cardiovascular Evidence: Not Assessed or None Hematologic Evidence: None/Not assessed Hepatic Evidence: None/Not assessed Metabolic Evidence: None/Not assessed Neurological Evidence: None/Not assessed Respiratory Evidence: None/Not assessed Renal Evidence: None/Not assessed Departure Time of Disposition: 06:10 Disposition: 02 XFER SHT-TRM HOSP Impression: Primary Impression: DKA (diabetic ketoacidoses) Additional Impressions: Respiratory failure Pulmonary edema UTI (urinary tract infection) Pneumonia Elevated troponin Condition: Critical Referrals: SAVANA DAVID DO (PCP) PRIMARY CARE PROVIDER Comments Transfer to [facility] ED for Dr. Mayes Duration or Time Spent with Pa: 60 mins Critical Care Note Total Time (mins): 60 Problem Qualifiers Primary Impression: DKA (diabetic ketoacidoses) Diabetes mellitus type: other specified (including MARYAN) Diabetes mellitus complication detail: without coma Qualified Codes: E13.10 - Other specified diabetes mellitus with ketoacidosis without coma Additional Impressions: Respiratory failure Chronicity: acute Respiratory failure complication: unspecified whether with hypoxia or hypercapnia Qualified Codes: J96.00 - Acute respiratory failure, unspecified whether with hypoxia or hypercapnia Pulmonary edema Chronicity: acute Qualified Codes: J81.0 - Acute pulmonary edema UTI (urinary tract infection) Urinary tract infection type: site unspecified Hematuria presence: with hematuria Qualified Codes: N39.0 - Urinary tract infection, site not specified; R31.9 - Hematuria, unspecified Pneumonia Pneumonia type: due to unspecified organism Laterality: unspecified laterality Lung location: unspecified part of lung Qualified Codes: J18.9 - Pneumonia, unspecified organism EMILY BECK MD Apr 23, 2019 05:30
[2019-04-23] MEDS ORDERED: DUONEB 0.5 MG-3 MG/3 ML SOLN IH STA (05:41)
[2019-04-23] MEDS ORDERED: DECADRON IH STA (05:41)
[2019-04-23] MEDS ORDERED: DUONEB 0.5 MG-3 MG/3 ML SOLN IH ONE (05:42)
[2019-04-23] MEDS ORDERED: DECADRON ONE (05:42)
[2019-04-23 05:45] VITALS: BP 194/124
[2019-04-23 05:48] LABS: CALCIUM 9.7 mg/dL (8.4-10.5); CARBON DIOXIDE 15.3 mmol/L (20.0-32)
[2019-04-23] MEDS ORDERED: DIPRIVAN 100 ML IV ONE (05:48)
[2019-04-23] MEDS ORDERED: ATIVAN ONE (05:50)
[2019-04-23] MEDS ORDERED: SUBLIMAZE ONE (05:50)
--- NOTE | 2019-04-23 05:50 | NUR ---
Critical Lab Critical Glucose of 540 called back from the lab. Notified Dr. Hummel
[2019-04-23] MEDS ORDERED: GLIM4TAB2 PO (05:52)
[2019-04-23] MEDS ORDERED: ATIVAN IV STA (05:53)
[2019-04-23] MEDS ORDERED: SUBLIMAZE IV STA (05:53)
[2019-04-23] MEDS ORDERED: LEVAQUIN 150 ML IV STA (05:53)
[2019-04-23] MEDS ORDERED: LASIX IV STA (05:53)
[2019-04-23] MEDS ORDERED: DIPRIVAN IV STA (05:53)
--- NOTE | 2019-04-23 05:54 | DIREP ---
PROCEDURE:CT HEAD OR BRAIN W/O CONTRAST COMPARISON:[facility], CT, CT HEAD BRAIN W/O CONTRAST, 07/22/2017, 09:08 PM. INDICATIONS:AMS TECHNIQUE:CT images were created without intravenous contrast. FINDINGS: VENTRICLES:The ventricles are normal in size and configuration. CEREBRUM:Left frontoparietal infarct. There is continued evolution when compared with previous examination. No hemorrhagic transformation is identified. CEREBELLUM:Negative. BRAINSTEM:Negative. BASAL CISTERNS:Negative. HEMORRHAGE:No MASS LESION:No ACUTE INFARCT:No SKULL:Normal. SINUSES:Normal. OTHER:None CONCLUSION:Acute findings are not identified. 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
[2019-04-23 05:56] LABS: BILIRUBIN,URINE NEGATIVE (NEGATIVE); UROBILINOGEN,URINE NORMAL (NEGATIVE)
--- NOTE | 2019-04-23 05:56 | PCM.EKG ---
[facility] Test Date: 2019-04-23 Test Time: 05:51:06 Pat Name: SANDI BANDA Department: Room: Gender: F Front Line Supervisor: RANDY : 1955 Requested By: EMILY BECK Order Number: [id number] Reading MD: Emily BECK Measurements Intervals [place] Rate: 112 P: 67 [place]: 184 QRS: -22 QRSD: 96 T: 100 QT: 334 QTc: 455 Interpretive Statements Sinus tachycardia T wave abnormality, consider lateral ischemia Abnormal ECG Compared to ECG 02/23/2018 07:29:01 T-wave abnormality now present Possible ischemia now present Sinus rhythm no longer present Atrial abnormality no longer present ST (T wave) deviation no longer present Electronically Signed On 04-26-2019 0:28:30 CDT by Emily BECK Please click the below link to view image of tracing.
[2019-04-23 05:57] LABS: APPEARANCE,URINE CLOUDY (CLEAR); UA COLOR YELLOW (YELLOW)
--- NOTE | 2019-04-23 05:59 | DIREP ---
PROCEDURE:CHEST 1 VIEW COMPARISON:[facility], CR, XRAY CHEST SINGLE VW, 02/22/2018, 12:06 PM. INDICATIONS:Respiratory distress FINDINGS: LUNGS/PLEURA:Endotracheal tube in good position, level with the top of the aortic arch. There are bilateral infiltrates common regions of atelectasis. Question pulmonary edema, versus bilateral pneumonia. VASCULATURE:Normal. Unremarkable pulmonary vasculature. CARDIAC:Normal. No cardiac silhouette abnormality or cardiomegaly. MEDIASTINUM:Normal. No visible mass or adenopathy. BONES:Normal. No fracture or visible bony lesion. OTHER:Negative. CONCLUSION:Endotracheal tube in good position. Question pulmonary edema, versus bilateral pneumonia. Dictated by: Andreas Rapp MD on 04/23/2019 at 05:57 AM
[2019-04-23 06:00] VITALS: BP 125/88
[2019-04-23] MEDS ORDERED: LASIX ONE (06:03)
--- NOTE | 2019-04-23 06:07 | NUR ---
MILKA Lees Mba on phone with MILKA
[2019-04-23] MEDS ORDERED: LEVAQUIN 150 ML IV ONE (06:10)
[2019-04-23 06:12] LABS: ABG PCO2 55.4 mmHg (35.0-45.0); HCO3act 15.7 mmol/L (22.0-26.0); pO2 95.6 mmHg (80.0-100.0)
[2019-04-23] MEDS ORDERED: HUMULIN R IV STA (06:15)
[2019-04-23] MEDS ORDERED: HUMULIN R 100 UNIT in NS 100ML 100 ML IV STA (06:15)
[2019-04-23] MEDS ORDERED: NS 1000ML 1,000 ML IV STA (06:15)
--- NOTE | 2019-04-23 06:15 | NUR ---
[facility] shift change at 0630. [facility] will call when they head this way.
[2019-04-23 06:24] VITALS: BP 112/82
--- NOTE | 2019-04-23 06:38 | NUR ---
Report Report given to Marine at [facility]
[2019-04-23] MEDS ORDERED: NS 100ML 100 ML IV ONE ×2 (06:42→07:20)
[2019-04-23] MEDS ORDERED: LANTUS SQ ONE (06:42)
--- NOTE | 2019-04-23 06:45 | NUR ---
Anisha Clarke from [facility] called to notified us that [facility] has an ETA of 17 minutes to our facility
--- NOTE | 2019-04-23 07:10 | NUR ---
[facility] at patients bedside
[2019-04-23 07:18] VITALS: BP 99/65
--- NOTE | 2019-04-23 07:22 | NUR ---
[facility] CARE OF PATIENT, PATIENT LEFT ED VIA [facility] WITH [facility] IN ROUTE TO [facility]
[2019-04-23 07:41] LABS: ABG PCO2 50.4 mmHg (35.0-45.0); ABG PH 7.161 (7.350-7.450); BE(B) -11.2 mmol/L (-2.0-2.0); HCO3act 17.6 mmol/L (22.0-26.0); pO2 96.6 mmHg (80.0-100.0)
[2019-04-23 07:53] VITALS: BP 99/65
== END 2019-04-23 07:22 | disposition short-term general hospital (02) ==
LOC: EDBD 05:11 → ER 05:11
DX: E13.10 Other specified diabetes mellitus with ketoacidosis without coma (principal); J96.00 Acute respiratory failure, unspecified whether with hypoxia or hypercapnia; J81.0 Acute pulmonary edema; N39.0 Urinary tract infection, site not specified; R31.9 Hematuria, unspecified; J18.9 Pneumonia, unspecified organism; R79.89 Other specified abnormal findings of blood chemistry; Z90.710 Acquired absence of both cervix and uterus; Z79.01 Long term (current) use of anticoagulants; Z79.899 Other long term (current) drug therapy; Z79.2 Long term (current) use of antibiotics; Z98.51 Tubal ligation status; Z79.84 Long term (current) use of oral hypoglycemic drugs
CPT/HCPCS: 36415; 36600 ×2; 70450; 71045; 80053; 81000; 82550; 82803 ×2; 82948; 83880; 84484; 85025; 85379; 87040 ×2; 87077; 87086; 87186; 93005; 94640; 96365; 96368; 96375; 96376; 99291; A4338; J1100; J1815; J1940; J1956; J2060; J3010; J7050 ×2; J7620; 83605; 94002